=== PATIENT | female | born 1980 | race Caucasian/White ===

== ENCOUNTER 2020-06-20 15:28 | Outpatient (REF) | payer OTHER, SELFPAY ==
[2020-06-20 17:28] LABS: Hematocrit 39.3 % (37-47); Hemoglobin 12.7 g/dl (12.0-16.0); Mean Corpuscular HGB Conc 32.3 g/dl (31.0-35.0); Mean Corpuscular Hemoglobin 30.3 pg (27.0-33.0); Mean Corpuscular Volume 93.8 fL (80-98); Mean Platelet Volume 10.8 fL (9.4-12.3); Platelet Count 235 X10*3/uL (160-400); Red Blood Count 4.19 X10*6/uL (4.20-5.50); Red Cell Distribution Width 12.4 % (11.0-16.0); White Blood Count 7.2 X10*3/uL (4.8-10.8)
[2020-06-20 17:51] LABS: Anion Gap 12 (12-20); Blood Urea Nitrogen 18 mg/dL (9-16); Calcium 9.3 mg/dL (8.4-10.2); Carbon Dioxide 25 mmol/L (22-29); Chloride 107 mmol/L (96-108); Cholesterol 172 mg/dL; Estimated Glomerular Filt Rate > 60; Glucose Random 86 mg/dL (60-115); HDL Cholesterol 59 mg/dL; LDL Cholesterol Calculated 94 mg/dl; Potassium 4.3 mmol/L (3.3-5.1); Sodium 140 mmol/L (135-145); Triglycerides 95 mg/dL
[2020-06-20 18:12] LABS: Thyroid Stimulating Hormone 0.63 uIU/mL (0.32-4.0)
[2020-06-23 08:04] LABS: ~HepC Num1 0.07 S/CO (0.00-0.79); ~Hepatitis C Antibody Nonreactive (Nonreactive)
== END 2020-06-20 15:29 | disposition home or self-care (01) ==
LOC: HO.LAB 15:28
PROVIDERS: PCP Nurse Practitioner Family; Visit Provider Physician Assistant
DX: Z13.9 Encounter for screening, unspecified (principal); R53.83 Other fatigue
CPT/HCPCS: 36415; 80048; 80061; 84443; 85027; 86803

== ENCOUNTER 2020-09-24 14:19 | Outpatient (REF) | payer OTHER, SELFPAY ==
--- NOTE | ~2020-09-24 | US_ITS ---
EXAMINATION: US PELVIC AND TRANSVAGINAL CLINICAL INFORMATION: Excessive and frequent menstruation with irregular cycles. COMPARISON: None TECHNIQUE: Transabdominal and transvaginal imaging of the pelvis was performed. FINDINGS: The uterus is retroverted and retroflexed measuring 8.4 cm in length, 4.3 cm in AP and 5.2 cm in transverse dimensions. The uterus is homogeneous in echotexture. Endometrial thickness is 0.4 cm. On transvaginal ultrasound, there is a small, echogenic lesion in the fundal endometrial canal measuring 1.0 x 0.7 cm suspicious for a polyp. The right ovary measures 4.7 x 2.8 x 2.2 cm and volume 15.2 mL. There is an anechoic cyst measuring 2.2 x 1.7 x 1.8 cm. There are additional small anechoic cysts seen adjacent. The left ovary measures 4.1 x 2.2 x 1.6 cm and volume 7.7 mL. It appears unremarkable. There is a small amount of free fluid in the cul-de-sac. US/US pelvic and transvaginal IMPRESSION: Retroverted uterus with a small endometrial polyp in the fundus suspected. Suggest hysterosonogram or endoscopic evaluation. Multiple small right ovarian cysts with the largest simple cyst measuring 2.2 cm. There is a small amount of free fluid in the cul-de-sac.
== END 2020-09-24 14:20 | disposition home or self-care (01) ==
LOC: HO.US 14:19
PROVIDERS: PCP Physician Assistant; Visit Provider Physician Assistant
DX: N92.1 Excessive and frequent menstruation with irregular cycle (principal)
CPT/HCPCS: 76830; 76856

== ENCOUNTER 2020-10-21 13:16 | Outpatient (REF) | payer OTHER, SELFPAY ==
[2020-10-22 12:16] LABS: CT PCR NOT DETECTED (Not Detect.); NG PCR NOT DETECTED (Not Detect.)
[2020-10-24 19:16] LABS: HPV mRNA E6/E7 rflx Not Detected (Not Detected)
== END 2020-10-21 13:17 | disposition home or self-care (01) ==
LOC: HO.LAB 13:16
PROVIDERS: PCP Physician Assistant; Visit Provider Obstetrics & Gynecology
DX: Z01.419 Encounter for gynecological examination (general) (routine) without abnormal findings (principal); Z11.51 Encounter for screening for human papillomavirus (HPV); Z11.3 Encounter for screening for infections with a predominantly sexual mode of transmission; N93.9 Abnormal uterine and vaginal bleeding, unspecified; N84.0 Polyp of corpus uteri
CPT/HCPCS: 87491; 87591; 87624; 88142

== ENCOUNTER 2020-10-31 09:54 | Day surgery (SDC) | payer OTHER, SELFPAY ==
[2020-10-27 10:06] VITALS: BMI 22.3
--- NOTE | 2020-10-30 08:55 | HO.ANESPROP2 ---
Documented by User: Magalie Henson NP 10/30/20 08:56 HPI - Anesthesia Eval Consult details Narrative: 40yo F for D&C Hysteroscopy, Poss Polypectomy, Poss Myomectomy PMFSH Active Problems Active Problems: All Active Problems (Updated 10/27/20 @ 10:09 by Zelda Persaud, LISY) Abnormal uterine bleeding (AUB) (Acute) Endometrial polyp (Acute) Past Medical History Medical History (Updated 10/27/20 @ 10:09 by Zelda Persaud RN) Low back pain Seasonal allergies Well woman exam Surgical History Surgical History (Updated 10/27/20 @ 10:05 by Zelda Persaud RN) H/O repair of right rotator cuff History of repair of anterior cruciate ligament of right knee Social History Social History (Updated 10/27/20 @ 10:05 by Zelda Persaud RN) Patient Tobacco Use Status: Never used Tobacco Use of substances other than those prescribed or required for medical reasons: No Have you been hit, kicked, punched, or otherwise hurt by someone within the past year? If so, by whom?: No Are you DNR?: No Advance Directives: No Advance Directives Information Provided: No Advance Directives on File: No Patient : No FDLMP: 10/06/2020 Meds Allergies Allergy/AdvReac Type Severity Reaction Status Date / Time methylisothiazolinone Allergy Intermediate Hives Verified 10/27/20 10:06 Home Medications Medication Instructions Recorded Confirmed Last Taken Type levocetirizine 5 mg tablet (Xyzal) 5 mg PO BEDTIME 10/27/20 10/27/20 Unknown History Exam Exam Date and Time: October 30, 2020 0855 Height,Weight and Vital Signs: Height 5 ft 4 in Weight 58.967 kg Pertinent Lab Results Pertinent Lab Results: Laboratory Tests 06/20/20 06/20/20 15:48 15:48 WBC 7.2 Hgb 12.7 Hct 39.3 Plt Count 235 Sodium 140 Potassium 4.3 Chloride 107 Carbon Dioxide 25 BUN 18 H Creatinine 0.83 Assessment and Plan Assessment Anesthesia Assessment: Chart Reviewed Documented by User: Lis Whaley MD 10/31/20 11:13 [facility] Past Medical History Medical History (Updated 10/27/20 @ 10:09 by Zleda Persaud, LISY) Low back pain Seasonal allergies Well woman exam Family History Family history of problems with anesthesia: No Surgical History Surgical History (Updated 10/27/20 @ 10:05 by Zelda Persaud RN) H/O repair of right rotator cuff History of repair of anterior cruciate ligament of right knee History of Problems with Anesthesia: Yes (PONV) Social History Social History (Updated 10/27/20 @ 10:05 by Zelda Persaud RN) Patient Tobacco Use Status: Never used Tobacco Use of substances other than those prescribed or required for medical reasons: No Have you been hit, kicked, punched, or otherwise hurt by someone within the past year? If so, by whom?: No Are you DNR?: No Advance Directives: No Advance Directives Information Provided: No Advance Directives on File: No Patient : No FDLMP: 10/06/2020 Meds Allergies Allergy/AdvReac Type Severity Reaction Status Date / Time methylisothiazolinone Allergy Intermediate Hives Verified 10/27/20 10:06 Home Medications Medication Instructions Recorded Confirmed Last Taken Type levocetirizine 5 mg tablet (Xyzal) 5 mg PO BEDTIME 10/27/20 10/27/20 Unknown History Exam Height,Weight and Vital Signs: Height 5 ft 4 in Weight 58.967 kg Vital Signs Temp Pulse Resp BP Pulse Ox 10/31/20 10:31 97.8 F 110 H 18 146/89 H 100 Pertinent Lab Results Pertinent Lab Results: Laboratory Tests 06/20/20 06/20/20 15:48 15:48 WBC 7.2 Hgb 12.7 Hct 39.3 Plt Count 235 Sodium 140 Potassium 4.3 Chloride 107 Carbon Dioxide 25 BUN 18 H Creatinine 0.83 Lab Results 10/31/20 Range/Units 10:10 Urine Test NEGATIVE (NEGATIVE) Airway Mallampati Class: II TM Dist: >3cm Neck ROM: Full Loose/Missing/Broken Teeth: No (Top front bonded) Heart: RRR Lungs: CTAB Assessment and Plan Assessment Anesthesia Assessment: Anesthesia Plan Discussed Final Anesthetic Review Family History of Problems with Anesthesia: No History of Problems with Anesthesia: Yes (PONV) NPO: Yes ASA Class: II Final Preanesthetic Review: No Changes in Pt Med Stat, Meds/Allgs Chart Reviewed, Consent Obtained/Reviewed and Anes Risks/Benef Reviewed Patient Risk: Low Procedure Risk: Low Assessment/Block/Sedation in SS: Assess/Block/Sedation-SS Anesthetic Plan Anesthetic Plan: GA Disposition: Standard PACU
[2020-10-31 10:31] VITALS: BP 146/89; PULSE 110; RESP 18; TEMP 36.6; O2SAT 100
[2020-10-31 10:43] LABS: UPreg QC Valid YES; Urine Pregnancy NEGATIVE (NEGATIVE)
[2020-10-31 10:51] VITALS: BMI 22.3
[2020-10-31] MEDS: Lactated Ringers 1,000 ML 100 ML IVCONT (10:52)
[2020-10-31] MEDS: Scopolamine 1.5 MG PATCH.TD.3 TRANSDERMA (11:20)
--- NOTE | 2020-10-31 11:51 | MHC.SHP ---
Pre-Procedural Eval Section A Date of Service: 10/31/20 The patient is an INPATIENT: No Changes since office visit: No Cold of Flu in the past 2 weeks, No New Medical Problems, No Changes in Medication and No Patient answered all questions The History & Physical has been completed within 30 days and I have reviewed it.: Yes Section B Chief Complaint: polyp or corpus uteri Allergies: Allergies Allergy/AdvReac Type Severity Reaction Status Date / Time methylisothiazolinone Allergy Intermediate Hives Verified 10/27/20 10:06 Plan Diagnosis/Plan: Unchanged I have reviewed the history and physical and performed a pertinent physical examination on my patient. No changes have occurred unless specified.
--- NOTE | 2020-10-31 12:55 | P.BOP_ITS ---
Brief Operative Note Date of Service: 10/31/20 Pre-op diagnosis: AUB with endometrial polyp by ultrasound Post-op diagnosis: same Procedure: Hysteroscopy D&C, Polypectomy Surgeon: Idris Albright MD Anesthesia: MAC Was an Commercial Real Estate Broker used for this Procedure?: No Estimated blood loss (mL): 0 Pathology: other (Endometrial Scrapping. Polyp) Condition: stable Disposition: PACU
--- NOTE | 2020-10-31 12:55 | W.PM.OPN ---
Operative Note Operative Note Date of Service: 10/31/20 Narrative: Preop Diagnosis: AUB with Endometrial polyp by US Operation: Diagnostic Hysteroscopy, Dilataion & Curettage and polypectomy Post Op Diagnosis: Same with Endometrial Polyp QBL: Minimal Anesthesia: MAC Surgeon: Idris Albright MD Properties Supervisor: None Complication: None Pathology: Endometrial Scrapings, Endometrial polyp Complication: None Pathology: Endometrial Scrapings, Endometrial polyp Procedure: The patient was put in the dorsal lithotomy position, scrubbed, and draped in the usual manner. A sterile speculum was inserted in the patient's vagina. The anterior lip of the cervix was grasped with a single tooth tenaculum. The cervix was dilated up to 5 mm, then the scope was inserted in the patient's uterus. Inspection revealed endometrial polyp. The Myosure Reach device was used; it was introduced through the operative channel and polypectomy done with no complications. At the end of the procedure, all instruments were taken out of the patient uterine and vaginal cavity. The single tooth tenaculum was removed and homeostasis was assured using pressure,. The patient tolerated the procedure well and was transferred to the PACU in a stable condition.
[2020-10-31 13:02] VITALS: BP 100/59; PULSE 76; RESP 16; TEMP 36.4; O2SAT 100
[2020-10-31 13:17] VITALS: BP 110/66; PULSE 74; RESP 17; O2SAT 100
[2020-10-31 13:32] VITALS: BP 101/66; PULSE 67; RESP 17; TEMP 36.4; O2SAT 100
== END 2020-10-31 14:01 | disposition home or self-care (01) ==
PROVIDERS: Nurse Practitioner; PCP Physician Assistant; Visit Provider Obstetrics & Gynecology
PROC: 0UDB8ZZ Extraction of Endometrium, Via Natural or Artificial Opening Endoscopic (ICD-10-PCS; CPT 58558; principal; 2020-10-31 12:00)
DX: N93.9 Abnormal uterine and vaginal bleeding, unspecified (principal); N84.0 Polyp of corpus uteri
CPT/HCPCS: 58558; 81025; 88305; J1100; J1885; J2250; J2405; J3010

== ENCOUNTER → 2020-11-12 14:49 | Outpatient (BNVA) | payer OTHER, SELFPAY | PROVIDERS: PCP Physician Assistant; Visit Provider Obstetrics & Gynecology ==

== ENCOUNTER 2021-03-11 11:57 | Outpatient (REF) | payer OTHER, SELFPAY ==
--- NOTE | ~2021-03-11 | MM_ITS ---
EXAMINATION: MM SCREENING DIGITAL BREAST TOMOSYNTHESIS, BILATERAL CLINICAL INFORMATION: Screening. Asymptomatic. Age 41. No prior breast imaging. No known family history breast cancer. The lifetime risk of breast cancer based on the Tyrer-Cuzick Model is 12%. COMPARISON: None (current study represents initial baseline exam). TECHNIQUE: Digital breast tomosynthesis is performed in both the craniocaudal and mediolateral oblique views along with computer-aided detection (CAD). Synthesized 2D images are generated from the tomosynthesis. FINDINGS: The breasts are heterogeneously dense, which may obscure small masses (ACR BI-RADS breast composition Category c). Left breast has smooth oval mass mid upper outer quadrant approximately 2 x 3 cm, likely a cyst. Patient will be recalled for targeted ultrasound to confirm. Neither breast shows architectural abnormality or abnormal calcifications. The axilla and skin contours are unremarkable. MM/MM tomosynthesis screening BI IMPRESSION: 1. Left: Smooth oval mass upper outer quadrant approximately 2 x 3 cm, probable cyst. 2. Right: No mammographic evidence of malignancy. ASSESSMENT: BI-RADS 0: Incomplete - Need Additional Imaging Evaluation RECOMMENDATION: 1. Targeted ultrasound left breast. 2. Radiology department staff will contact the patient for additional imaging. This patient's information was entered into a reminder system with a target due date for their next mammogram.
== END 2021-03-11 11:58 | disposition home or self-care (01) ==
LOC: HO.MAMMO 11:57
PROVIDERS: Visit Provider Physician Assistant
DX: Z12.31 Encounter for screening mammogram for malignant neoplasm of breast (principal)
CPT/HCPCS: 77063; 77067

== ENCOUNTER 2021-03-18 09:04 | Outpatient (REF) | payer OTHER, SELFPAY ==
--- NOTE | ~2021-03-18 | US_ITS ---
EXAMINATION: US DIAGNOSTIC ULTRASOUND BREAST, LEFT CLINICAL INFORMATION: Recall from baseline screening for smooth oval mass mid upper outer left breast, likely cyst. COMPARISON: Baseline mammography 03/11/2021. TECHNIQUE: Ultrasound of the breast is performed with real-time madsen scale imaging and color Doppler. FINDINGS: There are benign simple cysts upper outer left breast in area recent mammographic finding with overall size 4.8 x 1.5 x 3.8 cm. There is no solid component. No associated peripheral or internal color flow. There is increased through-transmission of sound. No solid mass or architectural abnormality. Results are discussed with the patient at time of visit. US/US breast LT limited IMPRESSION: Benign cysts upper outer left breast with overall size 4.8 x 1.5 x 3.8 cm. ASSESSMENT: BI-RADS 2: Benign RECOMMENDATION: Routine annual mammography screening. This patient's information was entered into a reminder system with a target due date for their next mammogram.
== END 2021-03-18 09:05 | disposition home or self-care (01) ==
LOC: HO.MAMMO 09:04
PROVIDERS: PCP Physician Assistant; Visit Provider Obstetrics & Gynecology
DX: N63.21 Unspecified lump in the left breast, upper outer quadrant (principal)
CPT/HCPCS: 76642

== ENCOUNTER 2021-12-29 08:59 | Outpatient (REF) | payer OTHER, SELFPAY ==
[2021-12-29 10:12] LABS: Hematocrit 36.9 % (37.0-47.0); Mean Corpuscular HGB Conc 32.5 g/dl (31.0-35.0); Mean Corpuscular Hemoglobin 30.2 pg (27.0-33.0); Mean Corpuscular Volume 92.7 fL (80.0-98.0); Mean Platelet Volume 10.6 fL (9.4-12.3); Platelet Count 214 X10*3/uL (160-400); Red Blood Count 3.98 X10*6/uL (4.20-5.50); Red Cell Distribution Width 12.2 % (11.0-16.0); White Blood Count 5.4 X10*3/uL (4.8-10.8)
[2021-12-29 11:01] LABS: HCG Quantitative < 2 mIU/mL; TSH reflex Free T4 0.98 uIU/mL (0.32-4.0)
[2021-12-29 18:28] LABS: CT PCR NOT DETECTED (Not Detect.); NG PCR NOT DETECTED (Not Detect.)
== END 2021-12-29 09:00 | disposition home or self-care (01) ==
LOC: HO.LAB 08:59
PROVIDERS: PCP Physician Assistant; Visit Provider Obstetrics & Gynecology
DX: N93.9 Abnormal uterine and vaginal bleeding, unspecified (principal)
CPT/HCPCS: 84443; 84702; 85027; 87491; 87591

== ENCOUNTER 2022-02-08 11:09 | Outpatient (REF) | payer OTHER, SELFPAY ==
--- NOTE | ~2022-02-08 | US_ITS ---
EXAMINATION: US PELVIS CLINICAL INFORMATION: Abnormal uterine vaginal bleeding; the last menstrual period was 3 weeks prior. COMPARISON: None TECHNIQUE: Ultrasound of the pelvis is performed using both transabdominal and transvaginal transducers along with Doppler. Transvaginal imaging is performed due to inadequate visualization transabdominally. FINDINGS: Uterus: The uterus is anteverted and anteflexed. The uterus measures 7.9 x 4.6 x 5.6 cm. The double wall endometrial thickness is 1.4 mm. Within the endometrial canal, a 1.2 x 0.9 x 0.8 cm polyp is noted. On the prior ultrasound examination, this measured 1.0 x 0.7 cm. The uterus is smooth in contour and has normal myometrial echogenicity. No visible fibroid. Adnexa: Both ovaries are visualized. There is normal color flow to the adnexa. There is no ovarian torsion. There is a small amount of free fluid in the cul-de-sac. Right ovary measures 3.2 x 2.7 x 3.3 cm, volume 14.9 mL. Within the right ovary, a 1.8 x 1.4 x 1.6 cm cyst is seen, with internal reticulated contents and no associated color Doppler flow. This is characteristic for a degenerating hemorrhagic cyst. Left ovary measures 3.7 x 1.5 x 1.1 cm, volume 14.8 mL. There are multiple simple physiologic follicles. US/US pelvic and transvaginal IMPRESSION: 1. An endometrial polyp is redemonstrated, with differential considerations including focal endometrial hyperplasia, hyperplastic polyp, a subendometrial fibroid and further neoplasm. Gynecology evaluation and management is recommended, with consideration for tissue sampling, if clinically appropriate. 2. A 1.8 cm degenerating corpus luteum cyst is seen within the right ovary. 3. There is a small amount of nonspecific free fluid within the cul-de-sac.
== END 2022-02-08 11:10 | disposition home or self-care (01) ==
LOC: HO.US 11:09
PROVIDERS: Visit Provider Obstetrics & Gynecology
DX: N93.9 Abnormal uterine and vaginal bleeding, unspecified (principal)
CPT/HCPCS: 76830; 76856

== ENCOUNTER 2022-03-04 08:39 | Outpatient (REF) | payer OTHER, SELFPAY | END 2022-03-04 08:40 | disposition home or self-care (01) | LOC: HO.LNP 08:39 | PROVIDERS: PCP Physician Assistant; Visit Provider Obstetrics & Gynecology | DX: N93.9 Abnormal uterine and vaginal bleeding, unspecified (principal); R93.5 Abnormal findings on diagnostic imaging of other abdominal regions, including retroperitoneum; N83.10 Corpus luteum cyst of ovary, unspecified side; K62.5 Hemorrhage of anus and rectum; Z32.02 Encounter for pregnancy test, result negative | CPT/HCPCS: 58100; 81025; 88305 ==

== ENCOUNTER 2022-03-17 12:12 | Outpatient (REF) | payer OTHER, SELFPAY ==
--- NOTE | ~2022-03-17 | MM_ITS ---
EXAMINATION: MM SCREENING DIGITAL BREAST TOMOSYNTHESIS, BILATERAL CLINICAL INFORMATION: Screening. Asymptomatic. The lifetime risk of breast cancer based on the Tyrer-Cuzick Model is 17.3%. COMPARISON: Mammography: 03/11/2021 and ultrasound of 03/18/2021. TECHNIQUE: Digital breast tomosynthesis is performed in both the craniocaudal and mediolateral oblique views along with computer-aided detection (CAD). Synthesized 2D images are generated from the tomosynthesis. FINDINGS: The breasts are extremely dense, which lowers the sensitivity of mammography (ACR BI-RADS breast composition Category d). There is multiplicity and bilaterality of scattered calcifications. There are again noted to be bilateral circumscribed densities in patient with previous left breast ultrasound demonstrating multiple simple cysts within the left breast. There has been an increase in size in some of the circumscribed cysts bilaterally. MM/MM tomosynthesis screening BI IMPRESSION: Some increase in size of circumscribed lesions within the breasts, with previous ultrasound demonstrating multiple simple cysts. ASSESSMENT: BI-RADS 2: Benign RECOMMENDATION: Routine annual mammography screening. This patient's information was entered into a reminder system with a target due date for their next mammogram.
== END 2022-03-17 12:13 | disposition home or self-care (01) ==
LOC: HO.MAMMO 12:12
PROVIDERS: Visit Provider Physician Assistant
DX: Z12.31 Encounter for screening mammogram for malignant neoplasm of breast (principal)
CPT/HCPCS: 77063; 77067

== ENCOUNTER → 2022-03-25 08:35 | Outpatient (BNVA) | payer OTHER, SELFPAY | PROVIDERS: PCP Physician Assistant; Visit Provider Obstetrics & Gynecology | DX: Z13.89 Encounter for screening for other disorder (principal) ==

== ENCOUNTER 2022-05-10 10:20 | Outpatient (REF) | payer OTHER, SELFPAY ==
[2022-05-10 11:38] LABS: MANUAL DIFF FLAG NO
[2022-05-10 11:56] LABS: Basophils Percent Auto 0.6 % (0-2); Eosinophils Percent Auto 0.3 % (0-4); Hematocrit 40.6 % (37.0-47.0); Hemoglobin 13.6 g/dl (12.0-16.0); Imm Gran Abs Auto 0.02 X10*3/uL (0.00-0.03); Imm Gran Pct Auto 0.3 % (0.0-0.4); Lymphocytes Absolute Auto 1.7 X10*3/uL (1.2-4.9); Lymphocytes Percent Auto 26.9 % (20-40); Mean Corpuscular HGB Conc 33.5 g/dl (31.0-35.0); Mean Corpuscular Hemoglobin 30.9 pg (27.0-33.0); Mean Corpuscular Volume 92.3 fL (80.0-98.0); Mean Platelet Volume 10.5 fL (9.4-12.3); Monocytes Absolute Auto 0.4 X10*3/uL (0.1-1.2); Monocytes Percent Auto 6.5 % (2-11); Neutrophils Absolute Auto 4.1 x10*3/uL (2.0-8.3); Neutrophils Percent Auto 65.4 % (45-73); Platelet Count 214 X10*3/uL (160-400); Red Cell Distribution Width 12.3 % (11.0-16.0); White Blood Count 6.2 X10*3/uL (4.8-10.8)
[2022-05-10 12:36] LABS: Erythrocyte Sedimentation Rate 2 MM/HR (0-20)
[2022-05-10 13:28] LABS: C Reactive Protein < 0.04 mg/dL (< or = 0.50)
== END 2022-05-10 10:21 | disposition home or self-care (01) ==
LOC: HO.LAB 10:20
PROVIDERS: PCP Physician Assistant; Visit Provider Physician Assistant
DX: K62.5 Hemorrhage of anus and rectum (principal)
CPT/HCPCS: 36415; 85025; 85652; 86140

== ENCOUNTER 2022-06-02 11:00 | Outpatient (REF) | payer OTHER, SELFPAY ==
--- NOTE | ~2022-06-02 | US_ITS ---
EXAMINATION: US PELVIS CLINICAL INFORMATION: Corpus luteum cyst of ovary; the last menstrual period was 5 days prior. COMPARISON: Pelvic ultrasound dated 02/08/2022. TECHNIQUE: Ultrasound of the pelvis is performed using both transabdominal and transvaginal transducers along with Doppler. Transvaginal imaging is performed due to inadequate visualization transabdominally. FINDINGS: Uterus: The uterus is anteverted and measures 8.4 x 3.8 x 5.4 cm. The uterus is retroverted and retroflexed. The double wall endometrial thickness is 1.2 mm. Within the endometrial canal, a 1.2 x 0.6 x 0.9 cm polyp is redemonstrated. The uterus is smooth in contour and has normal myometrial echogenicity. No visible fibroid. Adnexa: Both ovaries are visualized. There is normal color flow to the adnexa. There is no ovarian torsion. There is a small amount of free fluid in the cul-de-sac. Right ovary measures 3.8 x 1.9 x 2.2 cm, volume 8.3 mL. The right ovary contains a 1.3 x 1.1 x 1.1 cm benign, simple cyst. The previously noted degenerating corpus luteum cyst has resolved in the interim. Left ovary measures 3.4 x 1.6 x 1.8 cm, volume 5.1 mL. Small physiologic follicles are noted within the left ovary. US/US pelvic and transvaginal IMPRESSION: 1. There is a continued stable appearance of an endometrial polyp. Again, Gynecology evaluation management are recommended. 2. Small simple cysts and follicles are incidentally noted within the bilateral ovaries, which require no imaging follow-up. 2. There is a small amount of nonspecific free fluid in the cul-de-sac.
== END 2022-06-02 11:01 | disposition home or self-care (01) ==
LOC: HO.US 11:00
PROVIDERS: PCP Physician Assistant; Visit Provider Obstetrics & Gynecology
DX: N83.10 Corpus luteum cyst of ovary, unspecified side (principal)
CPT/HCPCS: 76830; 76856

== ENCOUNTER → 2022-06-29 12:30 | Outpatient (BNVA) | payer OTHER, SELFPAY | PROVIDERS: PCP Physician Assistant; Visit Provider Obstetrics & Gynecology | DX: Z13.89 Encounter for screening for other disorder (principal) ==

== ENCOUNTER 2022-07-16 08:57 | Day surgery (SDC) | payer OTHER, SELFPAY ==
[2022-07-14 15:57] VITALS: BMI 22.5
--- NOTE | 2022-07-15 09:18 | HO.ANESPROP2 ---
Documented by User: Magalie Henson NP 07/15/22 09:18 HPI - Anesthesia Eval Consult details Narrative: 42yo F for D&C Hysteroscopy,poss myomectomy,poss polypectomy,IUD insertion, PMFSH Active Problems Active Problems: All Active Problems (Updated 06/29/22 @ 13:04 by Idris Albright MD) Abnormal uterine bleeding (AUB) (Acute) Endometrial polyp (Acute) Well woman exam (Acute) Corpus luteum cyst (Acute) Abnormal ultrasound of endometrium (Acute) Rectal bleeding (Acute) Past Medical History Medical History (Updated 07/16/22 @ 09:22 by Merly Shields, RN) IBS (irritable bowel syndrome) In vitro fertilization Low back pain Seasonal allergies Well woman exam Family History Family History Maternal Aunt Colitis IBS (irritable bowel syndrome) Family history of problems with anesthesia: No Surgical History Surgical History (Updated 07/14/22 @ 15:56 by Zelda Persaud RN) H/O repair of right rotator cuff History of hysteroscopy History of repair of anterior cruciate ligament of right knee History of Problems with Anesthesia: Yes (PONV) Social History Social History Household Members: Spouse Alcohol intake: current Patient Tobacco Use Status: Never used Tobacco Current occupational status: employed Meds Allergies Allergy/AdvReac Type Severity Reaction Status Date / Time methylisothiazolinone Allergy Intermediate Hives Verified 07/16/22 09:23 Home Medications Medication Instructions Recorded Confirmed Last Taken Type levocetirizine 5 mg tablet (Xyzal) 5 mg PO BEDTIME 10/27/20 07/16/22 Unknown History Exam Exam Date and Time: July 15, 202218 Height,Weight and Vital Signs: Height 5 ft 5 in Weight 61.235 kg Pertinent Lab Results Pertinent Lab Results: Laboratory Tests 05/10/22 11:37 WBC 6.2 Hgb 13.6 Hct 40.6 Plt Count 214 Assessment and Plan Assessment Anesthesia Assessment: Chart Reviewed Final Anesthetic Review Family History of Problems with Anesthesia: No History of Problems with Anesthesia: Yes (PONV) Documented by User: Barrie Wynn MD 07/16/22 09:58 PMFSH Past Medical History Medical History (Updated 07/16/22 @ 09:22 by Merly Shields, RN) IBS (irritable bowel syndrome) In vitro fertilization Low back pain Seasonal allergies Well woman exam Patient : No Family History Family History Maternal Aunt Colitis IBS (irritable bowel syndrome) Surgical History Surgical History (Updated 07/14/22 @ 15:56 by Zelda Persaud, LISY) H/O repair of right rotator cuff History of hysteroscopy History of repair of anterior cruciate ligament of right knee Social History Social History Household Members: Spouse Alcohol intake: current Patient Tobacco Use Status: Never used Tobacco Current occupational status: employed Meds Allergies Allergy/AdvReac Type Severity Reaction Status Date / Time methylisothiazolinone Allergy Intermediate Hives Verified 07/16/22 09:23 Home Medications Medication Instructions Recorded Confirmed Last Taken Type levocetirizine 5 mg tablet (Xyzal) 5 mg PO BEDTIME 10/27/20 07/16/22 Unknown History Exam Airway Mallampati Class: I TM Dist: >3cm Neck ROM: Full Heart: ok Lungs: ok Assessment and Plan Assessment Anesthesia Assessment: Anesthesia Plan Discussed Final Anesthetic Review NPO: Yes ASA Class: II Final Preanesthetic Review: No Changes in Pt Med Stat, Meds/Allgs Chart Reviewed, Consent Obtained/Reviewed and Anes Risks/Benef Reviewed Patient Risk: Low Procedure Risk: Low Anesthetic Plan Anesthetic Plan: GA and Agree w/ Assess. and Plan Disposition: Standard PACU
[2022-07-16 09:28] LABS: UPreg QC Valid YES; Urine Pregnancy NEGATIVE (NEGATIVE)
[2022-07-16 09:31] VITALS: BP 108/74; PULSE 84; RESP 15; TEMP 36.9; O2SAT 98
[2022-07-16] MEDS: Lactated Ringers 1,000 ML 100 ML IVCONT (09:37)
[2022-07-16] MEDS: Scopolamine 1.5 MG PATCH.TD.3 EAR-BEHIND (10:06)
--- NOTE | 2022-07-16 10:26 | MHC.SHP ---
Pre-Procedural Eval Section A Date of Service: 07/16/22 The patient is an INPATIENT: No Changes since office visit: No Cold of Flu in the past 2 weeks, No New Medical Problems, No Changes in Medication and No Patient answered all questions The History & Physical has been completed within 30 days and I have reviewed it.: Yes Section B Chief Complaint: Abnormal findings on diagnostic imaging of other Allergies: Allergies Allergy/AdvReac Type Severity Reaction Status Date / Time methylisothiazolinone Allergy Intermediate Hives Verified 07/16/22 09:23 Plan Diagnosis/Plan: Unchanged I have reviewed the history and physical and performed a pertinent physical examination on my patient. No changes have occurred unless specified. Time Spent With Patient Time: Total time managing care of this patient today ____ minutes.
--- NOTE | 2022-07-16 11:22 | PM.OP ---
Brief Operative Note Date of Service: 07/16/22 Pre-op diagnosis: Abnormal uterine bleeding, endometrial polyp, requesting Mirena IUD insertion Post-op diagnosis: same (For endometrial polyp) Procedure: Hysteroscopy D&C, Polypectomies x4, Mirena IUD insertion Surgeon: Idris Albright MD Anesthesia: GLMA Was an Unhairing Inspector used for this Procedure?: No Estimated blood loss (mL): 0 Pathology: other (Endometrial Scrapping. Polyps) Condition: stable Disposition: PACU
--- NOTE | 2022-07-16 11:22 | W.PM.OPN ---
Operative Note Operative Note Date of Service: 07/16/22 Narrative: Preop Diagnosis: Abnormal uterine bleeding, Endometrial polyp by US, requesting Mirena IUD insertion Operation: Diagnostic Hysteroscopy, Dilataion & Curettage and polypectomies x 4, Mirena IUD insertion Post Op Diagnosis: 4 Endometrial Polyps QBL: Minimal Anesthesia: GLMA Surgeon: Idris Albright MD Supervisor Finish End: None Complication: None Pathology: Endometrial Scrapings, Endometrial polyps Procedure: The patient was put in the dorsal lithotomy position, scrubbed, and draped in the usual manner. A sterile speculum was inserted in the patient's vagina. The anterior lip of the cervix was grasped with a single tooth tenaculum. The cervix was dilated up to 5 mm, then the scope was inserted in the patient's uterus. Inspection revealed 4 endometrial polyps. The Myosure Reach device was used; it was introduced through the operative channel and polypectomies x4 done with no complications. The scope was then taken out from the uterine cavity, sharp curettings was carried on with minimal to moderate amount of tissues retrieved. A sound was advanced through the external and internal os until it reached the fundus of the uterus, the depth was 8 cm. The sound was then withdrawn. The IUD was loaded in a sterile manner and advanced into position. The string was visualized and cut to 3 cm. Tenaculum site hemostatic. At the end of the procedure, all instruments were taken out of the patient uterine and vaginal cavity. The single tooth tenaculum was removed and homeostasis was assured using pressure,. The patient tolerated the procedure well and was transferred to the PACU in a stable condition.
[2022-07-16 11:25] VITALS: BP 113/71; PULSE 98; RESP 20; TEMP 36.6; O2SAT 100
[2022-07-16 11:30] VITALS: BP 109/69; PULSE 69; RESP 18; O2SAT 100
[2022-07-16 11:35] VITALS: BP 106/69; PULSE 72; RESP 18; O2SAT 100
[2022-07-16 11:40] VITALS: BP 105/67; PULSE 68; RESP 16; O2SAT 100
[2022-07-16] MEDS: Acetaminophen 325 MG TABLET 650 MG PO (11:46)
[2022-07-16 12:06] VITALS: BP 106/70; PULSE 82; RESP 18; TEMP 37.2; O2SAT 100
== END 2022-07-16 12:25 | disposition home or self-care (01) ==
PROVIDERS: Nurse Practitioner; PCP Physician Assistant; Visit Provider Obstetrics & Gynecology
PROC: 0UDB8ZZ Extraction of Endometrium, Via Natural or Artificial Opening Endoscopic (ICD-10-PCS; CPT 58558; principal; 2022-07-16 11:10)
DX: N93.9 Abnormal uterine and vaginal bleeding, unspecified (principal); N84.0 Polyp of corpus uteri; N83.10 Corpus luteum cyst of ovary, unspecified side; Z30.430 Encounter for insertion of intrauterine contraceptive device; J30.2 Other seasonal allergic rhinitis; Z88.8 Allergy status to other drugs, medicaments and biological substances; Z79.899 Other long term (current) drug therapy; M54.50 Low back pain, unspecified; Z98.890 Other specified postprocedural states
CPT/HCPCS: 58558; 58300; 81025; 88305; J1100; J1885; J2250; J2405

== ENCOUNTER → 2022-08-04 11:16 | Outpatient (BNVA) | payer OTHER, SELFPAY | PROVIDERS: PCP Physician Assistant; Visit Provider Obstetrics & Gynecology ==

== ENCOUNTER 2022-09-27 10:34 | Day surgery (SDC) | payer OTHER, SELFPAY ==
[2022-09-23 15:43] VITALS: BMI 22.5
--- NOTE | 2022-09-24 10:45 | P.CONAN_ITS ---
Documented by User: Magalie Henson NP 09/24/22 10:48 HPI - Anesthesia Eval Consult details Narrative: 42yo F for Colonoscopy PMFSH Active Problems Active Problems: All Active Problems (Updated 08/04/22 @ 11:48 by Idris Albright MD) Abnormal uterine bleeding (AUB) (Acute) Endometrial polyp (Acute) Well woman exam (Acute) Corpus luteum cyst (Acute) Abnormal ultrasound of endometrium (Acute) Rectal bleeding (Acute) Past Medical History Medical History IBS (irritable bowel syndrome) In vitro fertilization Low back pain Seasonal allergies Well woman exam Family History Family History Maternal Aunt Colitis IBS (irritable bowel syndrome) Family history of problems with anesthesia: No Surgical History Surgical History H/O repair of right rotator cuff History of hysteroscopy History of repair of anterior cruciate ligament of right knee History of Problems with Anesthesia: Yes (PONV) Social History Social History Household Members: Spouse Alcohol intake: current Patient Tobacco Use Status: Never used Tobacco Are you DNR?: No Advance Directives: No Advance Directives Information Provided: Yes Nutrition Risks: No Nutritional Risk FDLMP: started today Current occupational status: employed Meds Allergies Allergy/AdvReac Type Severity Reaction Status Date / Time methylisothiazolinone Allergy Intermediate Hives Verified 09/27/22 10:47 Home Medications Medication Instructions Recorded Confirmed Last Taken Type levocetirizine 5 mg tablet (Xyzal) 5 mg PO BEDTIME 10/27/20 09/27/22 Unknown History levonorgestrel 21 mcg/24 hours (8 intrauterine 08/04/22 Unknown History yrs) 52 mg intrauterine device (Mirena) Exam Exam Date and Time: September 24, 2022 1045 Height,Weight and Vital Signs: Height 5 ft 5 in Weight 61.235 kg Assessment and Plan Assessment Anesthesia Assessment: Chart Reviewed Final Anesthetic Review Family History of Problems with Anesthesia: No History of Problems with Anesthesia: Yes (PONV) Documented by User: Shelly Moise MD 09/27/22 11:33 [facility] Past Medical History Medical History IBS (irritable bowel syndrome) In vitro fertilization Low back pain Seasonal allergies Well woman exam Family History Family History Maternal Aunt Colitis IBS (irritable bowel syndrome) Surgical History Surgical History H/O repair of right rotator cuff History of hysteroscopy History of repair of anterior cruciate ligament of right knee History of Problems with Anesthesia: Yes Social History Social History Household Members: Spouse Alcohol intake: current Patient Tobacco Use Status: Never used Tobacco Are you DNR?: No Advance Directives: No Advance Directives Information Provided: Yes Nutrition Risks: No Nutritional Risk FDLMP: started today Current occupational status: employed Meds Allergies Allergy/AdvReac Type Severity Reaction Status Date / Time methylisothiazolinone Allergy Intermediate Hives Verified 09/27/22 10:47 Home Medications Medication Instructions Recorded Confirmed Last Taken Type levocetirizine 5 mg tablet (Xyzal) 5 mg PO BEDTIME 10/27/20 09/27/22 Unknown History levonorgestrel 21 mcg/24 hours (8 intrauterine 08/04/22 Unknown History yrs) 52 mg intrauterine device (Mirena) Exam Airway Mallampati Class: II (bonded tooth bottom center) TM Dist: >3cm Neck ROM: Full Heart: rrr Lungs: cta Assessment and Plan Assessment Anesthesia Assessment: Anesthesia Plan Discussed Final Anesthetic Review History of Problems with Anesthesia: Yes NPO: No ASA Class: II Final Preanesthetic Review: No Changes in Pt Med Stat, Meds/Allgs Chart Reviewed and Consent Obtained/Reviewed Patient Risk: Intermediate Procedure Risk: Intermediate Anesthetic Plan Anesthetic Plan: MAC: Disposition: Standard PACU
[2022-09-27 10:52] LABS: UPreg QC Valid YES; Urine Pregnancy NEGATIVE (NEGATIVE)
[2022-09-27 10:59] VITALS: BP 114/79; PULSE 82; RESP 18; TEMP 36.7; O2SAT 100
[2022-09-27] MEDS: Lactated Ringers 1,000 ML 100 ML IVCONT (10:59)
--- NOTE | 2022-09-27 11:31 | MHC.SHP ---
Pre-Procedural Eval Section A Date of Service: 09/27/22 The patient is an INPATIENT: No The History & Physical has been completed within 30 days and I have reviewed it.: No Section B Chief Complaint: IBS, rectal bleeding Relevant Family History (Specify if Yes): Yes Relevant Social History: None Present Medications: see Short Stay Collaborative assessment Medical History: Significant History (Low back pain Seasonal allergies) History of Previous Operations: Relevant previous surgery/procedure and date(s) (H/O repair of right rotator cuff History of repair of anterior cruciate ligament of right knee) Allergies: Allergies Allergy/AdvReac Type Severity Reaction Status Date / Time methylisothiazolinone Allergy Intermediate Hives Verified 09/27/22 10:47 Review of Systems Sugical H&P ROS: Negative: Constitution, Cardiovascular, Respiratory and Gastrointestinal Exam Surgical H&P Exam: Normal: Heart, Normal: Lungs, Normal: Extremities and Normal: Abdomen Plan Diagnosis/Plan: Unchanged I have reviewed the history and physical and performed a pertinent physical examination on my patient. No changes have occurred unless specified. Time Spent With Patient Time: Total time managing care of this patient today ____ minutes.
--- NOTE | 2022-09-27 11:35 | W.PM.OPN ---
Operative Note Operative Note Date of Service: 09/27/22 Narrative: COLONOSCOPY TILL CECUM WITH BIOPSIES, SNARE POLYPECTOMY SUBMUCOSAL INJECTION AND HEMOCLIP PLACEMENT Pre-op diagnosis: IBS, rectal bleeding Post-op diagnosis:? Colon polyps, diverticulosis, hemorrhoids Endoscopist:? Mikel Lazaro MD Anesthesia:?MAC Consent: Indications for the procedure and potential complications of bleeding, perforation, reaction to medications and missed diagnosis were discussed with the patient and informed consent was obtained. Instrument: Olympus PCF H 190 L variable stiffness pediatric colonoscope Monitoring: Vital signs and clinical assessment, intermittent blood pressure monitoring, continuous EKG monitoring, Pulse oximetry and Carbon Dioxide monitoring were done throughout the procedure. Please see anesthesia flowsheet. Colon withdrawl time was 34 minutes. Procedure: The patient was placed in the left lateral decubitis position and pre-procedure medications were administered. After a digital rectal examination of the ano-rectum, the video colonoscope was inserted into the rectum and advanced through the colon to the cecum. The colonoscope was slowly withdrawn in a retrograde panoramic fashion and the colon mucosa was carefully examined including a retroflexed view of the rectum. Findings and interventions are described below. Procedure Difficulty: Colon was long and there was some loop formation. Findings: Terminal Ileum: Not evaluated Cecum: A 12 - 15 mm flat polyp -raised with 2 cc of normal saline and removed with a hot snare. Some bleeding noted at the polypectomy site controlled with cautery using the snare tip. Polypectomy site was closed with 1 hemoclip Ascending Colon: A 15 to 18 mm sessile polyp in the distal AC/hepatic flexure - removed with a hot snare. Transverse Colon: Normal Descending Colon: Normal Sigmoid Colon: A 12 -15 mm sessile polyp - removed with a hot snare. Moderate diverticulosis Rectum: A 12 -15 mm sessile polyp - removed with a hot snare. A 3.5 to 4 cms hemorrhagic appearing polyp on a short pedicle - removed piecemeal with a hot snare. Polypectomy site was closed with 2 hemoclips and marked by Nataliia ink Ano-rectum: Moderate internal hemorrhoids Colon preparation: Excellent Impression and Post Procedure Diagnosis: Colonoscopy Findings: Four medium sized and one large polyps removed Random biopsies were obtained from the right and left colon to check for microscopic colitis Moderate diverticulosis seen in the sigmoid colon Moderate hemorrhoids on retroflexed exam. Rectal bleeding likely from large rectal polyp Plan: Await pathology results Patient has an appointment on 10/11/22 in the GI Clinic with SILVIO Silverio. Repeat Colonoscopy interval based on path results - in 1 year if polyps are adenomatous and to check polypectomy site in the rectum and 10 years if polyps are hyperplastic. Above findings were reviewed with the patient and colon polyps and diverticulosis handouts were given in the discharge area
[2022-09-27 12:30] VITALS: BP 98/57; PULSE 78; RESP 18; TEMP 36.1; O2SAT 100
[2022-09-27 12:45] VITALS: BP 108/70; PULSE 64; RESP 18; TEMP 37.2; O2SAT 100
== END 2022-09-27 13:22 | disposition home or self-care (01) ==
PROVIDERS: Nurse Practitioner; PCP Physician Assistant; Visit Provider Internal Medicine Gastroenterology
PROC: 0DJD8ZZ Inspection of Lower Intestinal Tract, Via Natural or Artificial Opening Endoscopic (ICD-10-PCS; CPT 45378; principal; 2022-09-27 12:10)
DX: D12.0 Benign neoplasm of cecum (principal); D12.2 Benign neoplasm of ascending colon; D12.5 Benign neoplasm of sigmoid colon; D12.8 Benign neoplasm of rectum; K62.82 Dysplasia of anus; K57.30 Diverticulosis of large intestine without perforation or abscess without bleeding; K64.8 Other hemorrhoids; K62.5 Hemorrhage of anus and rectum; K58.9 Irritable bowel syndrome, unspecified; Z79.899 Other long term (current) drug therapy
CPT/HCPCS: 45385; 45380; 81025; 88305; J2250

== ENCOUNTER → 2022-09-27 10:34 | Outpatient (BNV) | payer OTHER, SELFPAY | PROVIDERS: PCP Physician Assistant; Visit Provider Internal Medicine Gastroenterology | DX: K58.9 Irritable bowel syndrome, unspecified (principal); K62.5 Hemorrhage of anus and rectum; K57.30 Diverticulosis of large intestine without perforation or abscess without bleeding; K64.8 Other hemorrhoids; D12.0 Benign neoplasm of cecum; D12.2 Benign neoplasm of ascending colon; D12.5 Benign neoplasm of sigmoid colon; D12.8 Benign neoplasm of rectum | CPT/HCPCS: 45381; 45385 ==

== ENCOUNTER 2022-10-19 09:39 | Outpatient (AMB) | payer OTHER, SELFPAY ==
--- NOTE | 2022-10-19 09:36 | MHC.OFFVIS ---
Intake Intake Visit Reasons: S/P [place]; Dr. Lazaro Intake Note: Patient follow up for Colonoscopy results. Patient denies any GI issues. Rn Psych Required: No Accompanied by: Self / Same As Patient Allergies methylisothiazolinone Allergy (Intermediate, Verified 10/19/22 09:41) Hives HPI HPI Comments History of Present Illness Details A very pleasant 42-year-old female follows up after recent colonoscopy for rectal bleed She tolerated procedure well She has no GI complaints today Reviewed procedure report and pathology She was is concerned as to her pathology, certainly understandable No nausea, vomiting, hematemesis, hematochezia fever chills PFSH Medical History IBS (irritable bowel syndrome) In vitro fertilization Low back pain Seasonal allergies Well woman exam Surgical History H/O repair of right rotator cuff History of hysteroscopy History of repair of anterior cruciate ligament of right knee Hx of colonoscopy Family History Maternal Aunt Colitis IBS (irritable bowel syndrome) Social History Household Members: Spouse Alcohol intake: current Patient Tobacco Use Status: Never used Tobacco Current occupational status: employed Female Reproductive History Menstrual Age of Menarche: 10 Review of Systems Const All systems reviewed & are unremarkable except as noted in HPI and below Card Denies chest pain and Denies dyspnea Resp Denies dyspnea GI Denies abdominal pain Physical Exam Const General: cooperative, healthy appearing, comfortable and no acute distress Orientation/consciousness: patient oriented x3 Limitations: no limitations Eyes Sclerae: sclerae normal Neuro General: patient oriented x3 Psych Appearance: grossly normal and well kempt Mental Status: mental status grossly normal Speech and movement: Normal speech and movement present and Clear speech present Affect: normal affect Attitude: cooperative Thought process: Normal thought process present Thought content: Normal thought content present Insight: Good insight present (Psych) Judgement: Good judgement present (Psych) Results Reviewed Results Reviewed: Findings: Terminal Ileum: Not evaluated Cecum:? A 12 - 15 mm flat polyp -raised with 2 cc of normal saline and removed with a hot snare. Some bleeding noted at the polypectomy site controlled with cautery using the snare tip.? Polypectomy site was closed with 1 hemoclip Ascending Colon:? A 15 to 18 mm sessile polyp in the distal AC/hepatic flexure - removed with a hot snare. Transverse Colon:? Normal Descending Colon:? Normal Sigmoid Colon:? A 12 -15 mm sessile polyp - removed with a hot snare. Moderate diverticulosis Rectum: ? A 12 -15 mm sessile polyp - removed with a hot snare. A 3.5 to 4 cms hemorrhagic appearing polyp on a short pedicle - removed piecemeal with a hot snare. Polypectomy site was closed with 2 hemoclips and marked by Nataliia ink Ano-rectum:? Moderate internal hemorrhoids Colon preparation: Excellent ? Impression and Post Procedure Diagnosis: Colonoscopy Findings: Four medium sized and one large polyps removed Random biopsies were obtained from the right and left colon to check for microscopic colitis Moderate diverticulosis seen in the sigmoid colon Moderate hemorrhoids on retroflexed exam. Rectal bleeding likely from large rectal polyp Plan: Await pathology results Patient has an appointment on 10/11/22 in the GI Clinic with SILVIO Silverio. Repeat Colonoscopy interval based on path results - in 1 year if polyps are adenomatous and to check polypectomy site in the rectum and 10 years if polyps are hyperplastic. Above findings were reviewed with the patient and colon polyps and diverticulosis handouts were given in the discharge area Name:Romina Turner Senait Age/Sex: 42/F Attending: Mikel Lazaro MD : 1980 Submitted by: Mikel Lazaro MD Copies to: SAMUEL ESPINOZA MR #: [id number] ? Status: [facility] Collected: 09/27/22 Location: [facility] Received: 09/27/22 Diagnosis A.? Colon, ascending, polypectomy:? Sessile serrated lesion/polyp; negative for cytologic dysplasia. B.? Cecum, polypectomy:? Sessile serrated lesion/polyp; negative for cytologic dysplasia. C.? Colon, right, biopsy:? Colonic mucosa within normal limits; negative for microscopic colitis. D.? Colon, left, biopsy:? Colonic mucosa within normal limits; negative for microscopic colitis. E.? Colon, sigmoid, polypectomy:? Tubular adenoma; negative for high-grade dysplasia or carcinoma. F.? Rectum, polypectomy:? Fragments of tubular adenoma; negative for high-grade dysplasia or carcinoma. G.? Rectum, 10 cm, polypectomy:? Fragments of tubular adenoma with focal high grade dysplasia; negative for carcinoma. Clinical History Pre-Op Dx:? Rectal bleeding Post-Op Dx: Colon polyps, diverticulosis, hemorrhoids You should undergo a flexible sigmoidoscopy in 3-4 months to check the area of the large rectal polyp. Assessment & Plan Assessment & Plan (1) Sessile serrated polyp of colon: Code(s): D12.6 - Benign neoplasm of colon, unspecified (2) Tubular adenoma: Code(s): D36.9 - Benign neoplasm, unspecified site (3) Diverticulosis of colon: Code(s): K57.30 - Diverticulosis of large intestine without perforation or abscess without bleeding (4) Hemorrhoids: Code(s): K64.9 - Unspecified hemorrhoids Plan 3- months sigmoid- Dr. Lazaro 1 [id number]. Malik Patient Instructions: A very pleasant 42-year-old female follows up after recent colonoscopy for rectal bleeding. Review procedure report and pathology as well discussed recommendations 3- months sigmoid- Dr. Lazaro 1 [id number]. Malik All first-degree relatives begin screening age 33 (typically go back 10 years) Opportunities for questions answered to her satisfaction Encouraged to call with any questions or concerns Coding Level of Care Code Est Pt Level 3 (29100) Diagnoses Sessile serrated polyp of colon D12.6 Tubular adenoma D36.9 Diverticulosis of colon K57.30 Hemorrhoids K64.9 Time Spent (min) 25
== END 2022-10-19 09:59 | disposition home or self-care (01) ==
LOC: HO.HGI 09:39
PROVIDERS: PCP Physician Assistant; Visit Provider Physician Assistant
DX: D12.6 Benign neoplasm of colon, unspecified (principal); D36.9 Benign neoplasm, unspecified site; K57.30 Diverticulosis of large intestine without perforation or abscess without bleeding; K64.9 Unspecified hemorrhoids
CPT/HCPCS: 99213

== ENCOUNTER → 2022-10-19 09:39 | Outpatient (BNVA) | payer OTHER, SELFPAY | PROVIDERS: PCP Physician Assistant; Visit Provider Physician Assistant ==

== ENCOUNTER 2022-10-29 08:03 | Outpatient (AMB) | payer OTHER, SELFPAY ==
--- NOTE | 2022-10-29 08:05 | A.OFFVIS_ITS ---
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 Patient reports that she feels that the screw is coming out and causing her stiffness and pain. She states that she noticed it about 2 months ago. Allergies methylisothiazolinone Allergy (Intermediate, Verified 10/29/22 08:10) Hives HPI Electrical Engineering Intern- Rt knee pain HPI Details 42-year-old female who presents in the office today, as a new patient, for an evaluation of right knee pain. The patient claims she feels the screw coming out of place, which causes her stiffness and pain. She states she began to feel this sensation 2 months ago, in 08/2022. She states she has something sticking out where she thinks the screw is. She states her pain increases when sitting with her knee at a 90 degrees angle. Patient has a history of right knee ACL reconstruction in 1998. [facility] Medical History IBS (irritable bowel syndrome) In vitro fertilization Low back pain Seasonal allergies Well woman exam Surgical History H/O repair of right rotator cuff History of hysteroscopy History of repair of anterior cruciate ligament of right knee Hx of colonoscopy Family History Maternal Aunt Colitis IBS (irritable bowel syndrome) Social History Household Members: Spouse Alcohol intake: current Patient Tobacco Use Status: Never used Tobacco Current occupational status: employed Female Reproductive History Menstrual Age of Menarche: 10 Review of Systems Const All systems reviewed & are unremarkable except as noted in HPI and below Physical Exam Vital Signs: BMI result Body Mass Index 22.8 Const General: cooperative and no acute distress Orientation/consciousness: patient oriented x3 Resp Effort & Inspection: normal respiratory effort and able to speak in complete sentences Cardio Peripheral pulses: Peripheral pulses 2+ throughout Skin General skin exam: no rashes or lesions noted Neuro General: patient oriented x3 Extrem Other: Right knee: Normal to inspection. No ecchymosis, erythema, or joint effusion. No tenderness to palpation to the medial or lateral joint lines. Full knee extension and flexion. Negative Victor Hugo's. Negative anterior draw. NVI. Assessment & Plan Assessment & Plan (1) History of repair of anterior cruciate ligament of right knee: Code(s): Z98.890 - Other specified postprocedural states Plan Ms. Adame is a 42-year-old female who presents in the office today, as a new patient, for an evaluation of right knee pain. The patient claims she feels the screw coming out of place, which causes her stiffness and pain. She states she began to feel this sensation 2 months ago, in 08/2022. She states she has something sticking out where she thinks the screw is. She states her pain increases when sitting with her knee at a 90 degrees angle. Patient has a history of right knee ACL reconstruction in 1998. I discussed the role of cortisone injection in the right knee. However due to her pain not being present in the office today we have agreed to defer at this time. She will call the office should she decide to move forward with the cortisone injection. Follow up will be PRN, or sooner if needed. X-rays of the right knee which were obtained while in the office today and were reviewed by me, Bell Rizo PA-C, revealed no acute fractures or dislocation. Evidence of 2 prior ACL screws that are intact and in appropriate position. Orders: Orders XR knee RT 2V Today M25.569 - Pain in unspecified knee XR knee standing BI Today M25.569 - Pain in unspecified knee Patient Instructions: Scribed for Bell Rizo PA-C by Jesenia Willoughby medical corps officer, on 10/29/2022 at 8:05 am, EST. Coding Level of Care Code New Pt Level 3 (15254) Diagnoses History of repair of anterior cruciate ligament of right knee Z98.890
[2022-10-29 08:09] VITALS: BMI 22.8
== END 2022-10-29 08:38 | disposition home or self-care (01) ==
PROVIDERS: PCP Physician Assistant; Visit Provider Physician Assistant
DX: S83.511D Sprain of anterior cruciate ligament of right knee, subsequent encounter (principal)
CPT/HCPCS: 99203

== ENCOUNTER 2022-10-29 10:02 | Outpatient (REF) | payer OTHER, SELFPAY ==
--- NOTE | ~2022-10-29 | XR_ITS ---
EXAMINATION: XR KNEE, RIGHT XR KNEE AP STANDING CLINICAL INFORMATION: Pain. COMPARISON: Radiographs dated 07/28/2017. TECHNIQUE: Four views of the right knee. AP bilateral standing view of the knees was obtained. FINDINGS: No fracture or dislocation. There is a very small right knee joint effusion. Alignment is anatomic, without varus or valgus configuration seen bilaterally. The bilateral joint spaces are maintained. There has been a prior right ACL repair. There are minimal peripheral osteophytes noted of the upper and lower articular surfaces of the right patella. No abnormal soft tissue calcification. XR/XR knee RT 2V IMPRESSION: 1. No fracture or dislocation is seen. 2. There is a very small right knee joint effusion. 3. 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
--- NOTE | ~2022-10-29 | XR_ITS ---
EXAMINATION: XR KNEE, RIGHT XR KNEE AP STANDING CLINICAL INFORMATION: Pain. COMPARISON: Radiographs dated 07/28/2017. TECHNIQUE: Four views of the right knee. AP bilateral standing view of the knees was obtained. FINDINGS: No fracture or dislocation. There is a very small right knee joint effusion. Alignment is anatomic, without varus or valgus configuration seen bilaterally. The bilateral joint spaces are maintained. There has been a prior right ACL repair. There are minimal peripheral osteophytes noted of the upper and lower articular surfaces of the right patella. No abnormal soft tissue calcification. XR/XR knee standing BI IMPRESSION: 1. No fracture or dislocation is seen. 2. There is a very small right knee joint effusion. 3. 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
== END 2022-10-29 10:03 | disposition home or self-care (01) ==
LOC: HO.HOSX 10:02
PROVIDERS: Visit Provider Physician Assistant
DX: M25.561 Pain in right knee (principal); M25.562 Pain in left knee
CPT/HCPCS: 73560; 73565

== ENCOUNTER 2023-01-03 08:33 | Outpatient (AMB) | payer OTHER, SELFPAY ==
--- NOTE | 2023-01-03 08:35 | MHC.OFFVIS ---
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 No complaints. Last Pap/HPV was negative in 10/18 Last Mammogram was BI-RADS 2 in 03/22 [facility], [facility] Medical History In vitro fertilization IBS (irritable bowel syndrome) Low back pain Seasonal allergies Well woman exam Surgical History Hx of colonoscopy History of hysteroscopy History of repair of anterior cruciate ligament of right knee H/O repair of right rotator cuff Family History Maternal Aunt Colitis IBS (irritable bowel syndrome) Social History Household Members: Spouse Alcohol intake: current Patient Tobacco Use Status: Never used Tobacco Current occupational status: employed Female Reproductive History Menstrual Age of Menarche: 10 Date of last menstrual period: 12/31/22 control method: progestin IUCD (Mirena) Total pregnancies: 1 Full term: 1 Number of Living Children: 1 Review of Systems Const All systems reviewed & are unremarkable except as noted in HPI and below Card Reports as per HPI Resp Reports as per HPI GI Reports as per HPI and Reports no additional complaints Reports as per HPI Physical Exam Vital Signs: Last Vital Signs BP 100/66 01/03/23 08:38 BMI result Body Mass Index 23.9 Const General: cooperative, healthy appearing and comfortable Chest Chest palpation & inspection: normal inspection of the chest and normal palpation of entire chest wall Breast/axilla inspection: normal inspection of the breasts and normal inspection of the axillae Breast/axilla palpation: normal palpation of the breasts, normal palpation of the axillae and no axillary lymphadenopathy Resp Effort & Inspection: normal respiratory effort Auscultation: clear to auscultation bilaterally Percussion: percussion normal Cardio Palpation: normal PMI Rate: regular rate Rhythm: regular rhythm Heart sounds: no murmurs and no rubs Peripheral pulses: Peripheral pulses 2+ throughout GI Inspection: Yes normal to inspection Palpation (GI): Soft to palpation, nontender, no guarding, not rigid and No hepatosplenomegaly present Percussion: Yes normal to percussion Auscultation: normal bowel sounds Rectal Exam - Female: deferred General: Yes bladder normal to palpation External Female Exam: No lesion Speculum Exam - Vagina: normal appearance of the vagina, normal palpation, normal vaginal discharge and not erythematous Speculum Exam - Cervix: normal appearance of the cervix and normal palpation Bimanual exam- vagina & uterus: normal bimanual exam, normal palpation, uterine size normal, bladder normal to palpation, consistency normal and normal palpation Bimanual Exam- Adnexa, other: normal adnexae, no masses and no tenderness Assessment & Plan Assessment & Plan (1) Well woman exam: Code(s): Z01.419 - Encounter for gynecological examination (general) (routine) without abnormal findings Plan: Cotesting not indicated this year. Instructions given the patient to schedule next screening Mammogram in 03/23. Counseled the patient about the recommended dietary allowance of 1000 mg of Calcium & 600 IU of vitamin D. The patient was instructed to perform monthly self-breast exams and to schedule an annual exam in a year; All questions answered and the patient verbalized understanding. Instructed the patient to schedule annual exam in a year Coding Level of Care Code Est Pt Prev Care 40-64y(58726) Diagnoses Well woman exam Z01.419
[2023-01-03 08:38] VITALS: BP 100/66; BMI 23.9
== END 2023-01-03 08:56 | disposition home or self-care (01) ==
PROVIDERS: Visit Provider Obstetrics & Gynecology
DX: Z01.419 Encounter for gynecological examination (general) (routine) without abnormal findings (principal)
CPT/HCPCS: 99396

== ENCOUNTER → 2023-01-03 08:33 | Outpatient (BNVA) | payer OTHER, SELFPAY | PROVIDERS: Visit Provider Obstetrics & Gynecology ==

== ENCOUNTER 2023-03-24 12:06 | Day surgery (SDC) | payer OTHER, SELFPAY ==
[2023-03-22 14:31] VITALS: BMI 22.5
--- NOTE | 2023-03-23 12:00 | P.CONAN_ITS ---
Documented by User: Magalie Henson NP 03/23/23 12:00 HPI - Anesthesia Eval Consult details Narrative: 43yo F for Sigmoidoscopy Flexible PMFSH Active Problems Active Problems: All Active Problems (Updated 10/29/22 @ 08:38 by Jesenia Willoughby) History of repair of anterior cruciate ligament (Acute) Retained orthopedic hardware (Acute) Hemorrhoids (Acute) Diverticulosis of colon (Acute) Tubular adenoma (Acute) Sessile serrated polyp of colon (Acute) Rectal bleeding (Acute) Abnormal ultrasound of endometrium (Acute) Corpus luteum cyst (Acute) Well woman exam (Acute) Endometrial polyp (Acute) Abnormal uterine bleeding (AUB) (Acute) Past Medical History Medical History In vitro fertilization IBS (irritable bowel syndrome) Low back pain Seasonal allergies Well woman exam Family History Family History Maternal Aunt Colitis IBS (irritable bowel syndrome) Family history of problems with anesthesia: No Surgical History Surgical History Hx of colonoscopy History of hysteroscopy History of repair of anterior cruciate ligament of right knee H/O repair of right rotator cuff History of Problems with Anesthesia: Yes (PONV) Social History Social History Household Members: Spouse Alcohol intake: current Alcohol intake frequency: holidays/special occasions only Patient Tobacco Use Status: Never used Tobacco Are you DNR?: No Advance Directives: No Advance Directives Information Provided: Yes Nutrition Risks: No Nutritional Risk Patient : No FDLMP: 10days ago Current occupational status: employed Meds Allergies Allergy/AdvReac Type Severity Reaction Status Date / Time methylisothiazolinone Allergy Intermediate Hives Verified 01/03/23 08:39 Home Medications Medication Instructions Recorded Confirmed Last Taken Type levocetirizine 5 mg tablet (Xyzal) 5 mg PO BEDTIME 10/27/20 09/27/22 Unknown History levonorgestrel 21 mcg/24 hours (8 intrauterine 08/04/22 Unknown History yrs) 52 mg intrauterine device (Mirena) Exam Height,Weight and Vital Signs: Height 5 ft 5 in Weight 61.235 kg Assessment and Plan Assessment Anesthesia Assessment: Chart Reviewed Final Anesthetic Review Family History of Problems with Anesthesia: No History of Problems with Anesthesia: Yes (PONV) Documented by User: Kirsten Mata MD 03/24/23 13:12 [facility] Past Medical History Medical History In vitro fertilization IBS (irritable bowel syndrome) Low back pain Seasonal allergies Well woman exam Family History Family History Maternal Aunt Colitis IBS (irritable bowel syndrome) Surgical History Surgical History Hx of colonoscopy History of hysteroscopy History of repair of anterior cruciate ligament of right knee H/O repair of right rotator cuff Social History Social History Household Members: Spouse Alcohol intake: current Alcohol intake frequency: holidays/special occasions only Patient Tobacco Use Status: Never used Tobacco Are you DNR?: No Advance Directives: No Advance Directives Information Provided: Yes Nutrition Risks: No Nutritional Risk Patient : No FDLMP: 10days ago Current occupational status: employed Meds Allergies Allergy/AdvReac Type Severity Reaction Status Date / Time methylisothiazolinone Allergy Intermediate Hives Verified 01/03/23 08:39 Home Medications Medication Instructions Recorded Confirmed Last Taken Type levocetirizine 5 mg tablet (Xyzal) 5 mg PO BEDTIME 10/27/20 09/27/22 Unknown History levonorgestrel 21 mcg/24 hours (8 intrauterine 08/04/22 Unknown History yrs) 52 mg intrauterine device (Mirena) Exam Airway Mallampati Class: II TM Dist: >3cm Neck ROM: Full Heart: rrr Lungs: cta Assessment and Plan Assessment Anesthesia Assessment: Anesthesia Plan Discussed Final Anesthetic Review NPO: Yes ASA Class: II Final Preanesthetic Review: No Changes in Pt Med Stat, Meds/Allgs Chart Reviewed, Consent Obtained/Reviewed and Anes Risks/Benef Reviewed Patient Risk: Low Procedure Risk: Low Anesthetic Plan Anesthetic Plan: MAC: Disposition: Standard PACU
--- NOTE | 2023-03-24 11:48 | MHC.SHP ---
Pre-Procedural Eval Section A Date of Service: 03/24/23 Section B Chief Complaint: Benign neoplasm of colon, unspecified Relevant Family History (Specify if Yes): No Relevant Social History: None Present Medications: see Short Stay Collaborative assessment Medical History: Significant History ( IBS (irritable bowel syndrome) In vitro fertilization Low back pain Seasonal allergies) History of Previous Operations: Relevant previous surgery/procedure and date(s) ( H/O repair of right rotator cuff History of hysteroscopy History of repair of anterior cruciate ligament of right knee) Allergies: Allergies Allergy/AdvReac Type Severity Reaction Status Date / Time methylisothiazolinone Allergy Intermediate Hives Verified 01/03/23 08:39 Review of Systems Sugical H&P ROS: Negative: Constitution, Cardiovascular, Respiratory, Neurological, Psychiatric, Hem-Onc, Allergic/Immunologic, Gastrointestinal, Genitourinary, Musculoskeletal, Integumentary, Endocrine and Eyes/Ears/Nose/Throat Exam Surgical H&P Exam: Normal: HEENT, Normal: Heart, Normal: Lungs, Normal: Extremities, Normal: Abdomen, Normal: Skin and Normal: Neurological Plan Diagnosis/Plan: Unchanged I have reviewed the history and physical and performed a pertinent physical examination on my patient. No changes have occurred unless specified. Time Spent With Patient Time: Total time managing care of this patient today ____ minutes.
[2023-03-24 12:25] VITALS: BP 124/82; PULSE 100; RESP 20; TEMP 36.8; O2SAT 98; BMI 22.3
[2023-03-24 12:42] LABS: UPreg QC Valid YES; Urine Pregnancy NEGATIVE (NEGATIVE)
[2023-03-24] MEDS: Lactated Ringers 1,000 ML 100 ML IVCONT (12:43)
[2023-03-24] MEDS: Sodium Phosphate,Mono-Dibasic 133 ML ENEMA PR ×2 (12:44→13:20)
--- NOTE | 2023-03-24 13:14 | W.PM.OPN ---
Operative Note Operative Note Date of Service: 03/24/23 Narrative: Operative Information Procedure Description: sigmoidoscopy Indication: rectal bleeding Anesthesia: MAC Sigmoidoscopy Instrument: Upper endoscope Colonoscopy Monitoring: Vital signs and clinical assessment, continuous EKG monitoring, Pulse oximetry, Carbon Dioxide monitoring and blood pressure monitoring were done throughout the procedure. Procedure: The patient was placed in the left lateral decubitis position and pre-procedure medications were administered. After a digital rectal examination of the ano-rectum, the video colonoscope was inserted into the rectum and advanced through the colon to the transverse colon. The scope was slowly withdrawn in a retrograde panoramic fashion and the colon mucosa was carefully examined including a retroflexed view of the rectum. Findings and interventions are described below. Procedure Difficulty: easy Findings: Transverse Colon -normal Descending Colon:normal Sigmoid Colon: normal Rectum: Retroflexion with small internal hemorrhoids, grade I, tattoo noted from prior procedure, bx taken, no gross residual adenomatous tissue seen Anorectum - normal Colon preparation:good Impression and Post Procedure Diagnosis: internal hemorrhoids Plan: Repeat colonoscopy in 1 year due to hx of multiple polyps, consider adding EGD next time as patient said there is hx of stomach cancer in family as well Above findings were reviewed with the patient and relevant handouts were provided if indicated.
--- NOTE | 2023-03-24 13:17 | PC.NURSE ---
pt didnot need second fleets yellow results
[2023-03-24 13:58] VITALS: BP 93/54; PULSE 83; RESP 19; TEMP 36.6; O2SAT 98
[2023-03-24 14:13] VITALS: BP 110/68; PULSE 76; RESP 18; TEMP 36.6; O2SAT 100
== END 2023-03-24 14:32 | disposition home or self-care (01) ==
PROVIDERS: Nurse Practitioner; PCP Physician Assistant; Visit Provider Internal Medicine Gastroenterology
PROC: 0DJD8ZZ Inspection of Lower Intestinal Tract, Via Natural or Artificial Opening Endoscopic (ICD-10-PCS; CPT 45330; principal; 2023-03-24 13:40)
DX: K62.5 Hemorrhage of anus and rectum (principal); Z86.010 Personal history of colon polyps; K64.0 First degree hemorrhoids; R10.32 Left lower quadrant pain; K58.9 Irritable bowel syndrome, unspecified; Z80.0 Family history of malignant neoplasm of digestive organs; J30.2 Other seasonal allergic rhinitis; Z79.899 Other long term (current) drug therapy; Z88.8 Allergy status to other drugs, medicaments and biological substances
CPT/HCPCS: 45330; 81025; 88305; J2704

== ENCOUNTER → 2023-03-24 12:06 | Outpatient (BNV) | payer OTHER, SELFPAY | PROVIDERS: PCP Physician Assistant; Visit Provider Internal Medicine Gastroenterology | DX: K62.5 Hemorrhage of anus and rectum (principal); K64.0 First degree hemorrhoids | CPT/HCPCS: 45331 ==

== ENCOUNTER 2023-04-07 10:27 | Outpatient (AMB) | payer OTHER, SELFPAY ==
[2023-04-07 10:28] VITALS: BP 140/75; PULSE 101; BMI 23.0
--- NOTE | 2023-04-07 10:28 | A.OFFVIS_ITS ---
Intake Vital Signs 04/07/23 10:28 Height 5 ft 5 in Weight 138 lb 7.205 oz BMI 23.0 BP 140/75 H Blood Pressure Location Rt brachial Position Sitting Pulse 101 H Pulse Source Pulse Oximeter Intake Visit Reasons: S/P Sigmoid; Dr. Hughes Intake Note: Patient here s/p sigmoidoscopy with Dr. Hughes on 03-24-23. Pt states she is feeling well and denies any concerns at this time. Patient was recommended repeat colonoscopy next year in 2024. Allergies methylisothiazolinone Allergy (Intermediate, Verified 04/07/23 10:30) Hives Medication List - Last Reconciled 04/07/23 by Juanita Batista PA-C levocetirizine (Xyzal) 5 mg PO BEDTIME levonorgestrel (Mirena) intrauterine HPI HPI Comments History of Present Illness Details Very pleasant 43-year-old female personal history of multiple colon polyps follows up after recent sigmoidoscopy-following a full colonoscopy-to assess polypectomy site She tolerated procedure well She does family history multiple cancers-she is well has history endometrial polyps this is concerning to her Reviewed procedure report, pathology as well as recommendations She is agreeable to repeat colonoscopy as well as have an EGD. She has no GI complaints today. She has no complaints of nausea, vomiting, abdominal pain, fever or chills PFSH Medical History In vitro fertilization IBS (irritable bowel syndrome) Low back pain Seasonal allergies Well woman exam Surgical History Hx of sigmoidoscopy Hx of colonoscopy History of hysteroscopy History of repair of anterior cruciate ligament of right knee H/O repair of right rotator cuff Family History Maternal Aunt Colitis IBS (irritable bowel syndrome) Social History Household Members: Spouse Alcohol intake: current Alcohol intake frequency: holidays/special occasions only Patient Tobacco Use Status: Never used Tobacco Current occupational status: employed Female Reproductive History Menstrual Age of Menarche: 10 Review of Systems Const All systems reviewed & are unremarkable except as noted in HPI and below Physical Exam Vital Signs: Last Vital Signs Pulse 101 H 04/07/23 10:28 BP 140/75 H 04/07/23 10:28 BMI result Body Mass Index 23.0 Const General: cooperative, healthy appearing, comfortable and no acute distress Nutritional Appearance: thin Orientation/consciousness: patient oriented x3 Limitations: no limitations Eyes Sclerae: sclerae normal Resp Effort & Inspection: normal respiratory effort and able to speak in complete sentences Neuro General: patient oriented x3 Extrem General: Yes full ROM Psych Appearance: grossly normal and well kempt Mental Status: mental status grossly normal Speech and movement: Normal speech and movement present and Clear speech present Affect: normal affect Attitude: cooperative Thought process: Normal thought process present Thought content: Normal thought content present Insight: Good insight present (Psych) Judgement: Good judgement present (Psych) Results Reviewed Results Reviewed: 02/2023- Findings: Transverse Colon -normal Descending Colon:normal Sigmoid Colon: normal Rectum: Retroflexion with small internal hemorrhoids, grade I, tattoo noted from prior procedure, bx taken, no gross residual adenomatous tissue seen Anorectum - normal Colon preparation:good Impression and Post Procedure Diagnosis: internal hemorrhoids Plan: Repeat colonoscopy in 1 year due to hx of multiple polyps, consider adding EGD next time as patient said there is hx of stomach cancer in family as well marija: Romina Adame Age/Sex: 43/F Attending: Josh Hughes MD : 1980 Submitted by: Josh Hughes MD Copies to: SAMUEL ESPINOZA MR #: [id number] Status: [facility] Collected: 03/24/23 Location: [facility] [[email or web address]] Received: 03/24/23 Diagnosis Rectum, biopsy: Rectal mucosa within normal limits. Clinical History Pre-Op Dx: History of polyps Post-Op Dx: Internal hemorrhoids Microscopic Description Microscopic sections reviewed. Material Received Rectum biopsy Gross Description Received in formalin labeled rectum biopsy? are 3 pieces of vargas tissue measuring from 0.1-0.4 cm, all submitted in cassette labeled A. FM Copies To Josh Hughes MD [address] [place] [address] [place] [address] SAMUEL ESPINOZA [address] [place] [address] [id number] NOTE: Unless otherwise stated, all tissue is formalin-fixed and paraffin- embedded. Some or all of the immunohistochemical tests reported herein may have been developed and their performance characteristics determined by [facility]. They have not been cleared or approved by the U.S. Food and Drug Administration (FDA). However, the FDA has determined that such clearance or approval is not necessary. This laboratory is certified under the Clinical Laboratory Improvement Amendments of 1988 (CLIA) as qualified to perform high complexity clinical laboratory testing. Electronically Signed By: Trent Campbell MD 03/27/23 0907 Patient: Romina Adame Age/Sex: 43/F MR#: [id number] Page 1 of 08/2022 mpression and Post Procedure Diagnosis: Colonoscopy Findings: Four medium sized and one large polyps removed Random biopsies were obtained from the right and left colon to check for micr oscopic colitis Moderate diverticulosis seen in the sigmoid colon Moderate hemorrhoids on retroflexed exam. Rectal bleeding likely from large rectal polyp Plan: Await pathology results Patient has an appointment on 10/11/22 in the GI Clinic with SILVIO Silverio. Repeat Colonoscopy interval based on path results - in 1 year if polyps are adenomatous and to check polypectomy site in the rectum and 10 years if polyps are hyperplastic. Assessment & Plan Assessment & Plan (1) Sessile serrated polyp of colon: Comment: History-she concerned-given her history and family history-will go ahead and schedule her appropriately-certainly to avoid any further stress on her part. Code(s): D12.6 - Benign neoplasm of colon, unspecified Plan: Discuss timing procedures-reasonable to follow-up as request (2) Tubular adenoma: Comment: History Code(s): D36.9 - Benign neoplasm, unspecified site Plan EGD/ colon- Dr. Hughes- anytime from August- MG prep Orders: Orders EGD/Marcy Combo - GI Use Only Today D12.6 - Benign neoplasm of colon, unspecified, D36.9 - Benign neoplasm, unspecified site Medications: New bisacodyl (Dulcolax (bisacodyl)) Day before procedure @ 12 noon Take 4 tablets by mouth followed by large glass of water 20 mg (4 x 5 mg) PO ONCE 1 day PRN 4 tabs 0RF colonoscopy prep Z12.11 - Encounter for screening for malignant neoplasm of colon polyethylene glycol 3350 (Miralax) Take as directed by mouth the day before your procedure. 238 grams PO ONCE 1 day PRN 238 grams 0RF laxative effect Patient Instructions: Very pleasant 43-year-old female history of multiple polyps-does cause her concern, certainly understandable.. Will schedule EGD and full colonoscopy with Dr. Hughes-she is agreed to the plan MiraLax Gatorade prep Encouraged to call questions or concerns Coding Level of Care Code Est Pt Level 3 (85716) Diagnoses Sessile serrated polyp of colon D12.6 Tubular adenoma D36.9 Time Spent (min) 20
== END 2023-04-07 11:08 | disposition home or self-care (01) ==
PROVIDERS: PCP Physician Assistant; Visit Provider Physician Assistant
DX: D12.6 Benign neoplasm of colon, unspecified (principal); D36.9 Benign neoplasm, unspecified site
CPT/HCPCS: 99213

== ENCOUNTER → 2023-04-07 10:27 | Outpatient (BNVA) | payer OTHER, SELFPAY | PROVIDERS: PCP Physician Assistant; Visit Provider Physician Assistant ==

== ENCOUNTER 2023-05-23 08:41 | Outpatient (REF) | payer OTHER, SELFPAY ==
--- NOTE | ~2023-05-23 | MM_ITS ---
EXAMINATION: MM SCREENING DIGITAL BREAST TOMOSYNTHESIS, BILATERAL CLINICAL INFORMATION: Screening. Asymptomatic. COMPARISON: Mammography: 03/17/2022, 03/11/2021. Left breast ultrasound 03/18/2021. TECHNIQUE: Digital breast tomosynthesis is performed in both the craniocaudal and mediolateral oblique views along with computer-aided detection (CAD). Synthesized 2D images are generated from the tomosynthesis. FINDINGS: The breasts are extremely dense, which lowers the sensitivity of mammography (ACR BI-RADS breast composition Category d). Large oval masses in the upper outer left breast are consistent with known benign cysts as seen on prior ultrasound. There are small circumscribed oval and round masses in both breasts consistent with numerous cysts/fibrocystic changes. These appear stable from the prior exam. Otherwise, no suspicious calcifications or areas of architectural distortion are present. There are no skin or axillary abnormalities. MM/MM tomosynthesis screening BI IMPRESSION: -No mammographic evidence of malignancy. -Extremely dense fibrocystic breast parenchyma, with numerous underlying bilateral cysts, benign. No significant interval change in the examination. -Patient's with this degree of breast density may benefit from ultrasound screening as an adjunct to annual mammographic screening, usually performed 6 months after screening mammography. ASSESSMENT: BI-RADS BI-RADS 2 - Benign Findings RECOMMENDATION: Routine annual mammography screening. 1 year F/U This examination should not preclude the clinical evaluation of a suspicious palpable abnormality. This patient's information was entered into a reminder system with a target due date for their next mammogram.
== END 2023-05-23 08:42 | disposition home or self-care (01) ==
LOC: HO.MAMMO 08:41
PROVIDERS: PCP Physician Assistant; Visit Provider Physician Assistant
DX: Z12.31 Encounter for screening mammogram for malignant neoplasm of breast (principal)
CPT/HCPCS: 77063; 77067

== ENCOUNTER → 2023-05-23 08:45 | Outpatient (BNV) | payer OTHER, SELFPAY | PROVIDERS: PCP Physician Assistant; Visit Provider Radiology Diagnostic Radiology | DX: Z12.31 Encounter for screening mammogram for malignant neoplasm of breast (principal) | CPT/HCPCS: 77063; 77067 ==

== ENCOUNTER 2023-08-06 09:24 | Outpatient (REF) | payer OTHER, SELFPAY ==
[2023-08-06 10:48] LABS: Anion Gap 10 (12-20); Blood Urea Nitrogen 15 mg/dL (9-16); Calcium 9.3 mg/dL (8.4-10.2); Carbon Dioxide 25 mmol/L (22-29); Chloride 108 mmol/L (96-108); Cholesterol 172 mg/dL (<200); Estimated Glomerular Filt Rate > 60; Glucose Random 90 mg/dL (60-115); HDL Cholesterol 52 mg/dL (>40); LDL Cholesterol Calculated 103 mg/dL (<100); Potassium 4.1 mmol/L (3.3-5.1); Sodium 139 mmol/L (135-145); Triglycerides 87 mg/dL (<150)
== END 2023-08-06 09:25 | disposition home or self-care (01) ==
LOC: HO.LAB 09:24
PROVIDERS: PCP Physician Assistant; Visit Provider Physician Assistant
DX: Z13.9 Encounter for screening, unspecified (principal)
CPT/HCPCS: 36415; 80048; 80061

== ENCOUNTER 2023-11-22 06:28 | Day surgery (SDC) | payer OTHER, SELFPAY ==
[2023-11-18 14:02] VITALS: BMI 23.0
[2023-11-22 06:55] VITALS: BP 122/79; PULSE 90; RESP 18; TEMP 36.4; O2SAT 99; BMI 22.9
[2023-11-22] MEDS: Lactated Ringers 1,000 ML 100 ML IVCONT (07:14)
--- NOTE | 2023-11-22 07:15 | HO.ANESPROP2 ---
Documented by User: Magalie Henson NP 11/21/23 09:03 HPI - Anesthesia Eval Consult details Narrative: 43yo F for Upper Endoscopy and Colonoscopy [facility] Active Problems Active Problems: All Active Problems History of repair of anterior cruciate ligament (Acute) Retained orthopedic hardware (Acute) Hemorrhoids (Acute) Diverticulosis of colon (Acute) Tubular adenoma (Acute) Sessile serrated polyp of colon (Acute) Rectal bleeding (Acute) Abnormal ultrasound of endometrium (Acute) Corpus luteum cyst (Acute) Well woman exam (Acute) Endometrial polyp (Acute) Abnormal uterine bleeding (AUB) (Acute) Past Medical History Medical History (Updated 04/07/23 @ 11:05 by Juanita Batista PA-C) In vitro fertilization IBS (irritable bowel syndrome) Low back pain Seasonal allergies Well woman exam Family History Family History Maternal Aunt Colitis IBS (irritable bowel syndrome) Family history of problems with anesthesia: No Surgical History Surgical History (Updated 11/22/23 @ 07:06 by Anabel Mcfarland RN) History of esophagogastroduodenoscopy Hx of sigmoidoscopy Hx of colonoscopy History of hysteroscopy History of repair of anterior cruciate ligament of right knee H/O repair of right rotator cuff History of Problems with Anesthesia: Yes (PONV) Social History Social History Household Members: Spouse Alcohol intake: current Alcohol intake frequency: holidays/special occasions only Patient Tobacco Use Status: Never used Tobacco Have you been hit, kicked, punched, or otherwise hurt by someone within the past year? If so, by whom?: No Are you DNR?: No Advance Directives: No Advance Directives Information Provided: Yes Current occupational status: employed Meds Allergies Allergy/AdvReac Type Severity Reaction Status Date / Time methylisothiazolinone Allergy Intermediate Hives Verified 04/07/23 10:30 Home Medications ?Medication ?Instructions ?Recorded ?Confirmed ?Last Taken ?Type levocetirizine 5 mg tablet (Xyzal) 5 mg PO BEDTIME 10/27/20 11/22/23 11/21/23 History levonorgestrel 21 mcg/24 hr (up to intrauterine 08/04/22 Unknown History 8 years) 52 mg intrauterine device (Mirena) Exam Height,Weight and Vital Signs: Height 5 ft 5 in Weight 62.8 kg Assessment and Plan Assessment Anesthesia Assessment: Chart Reviewed Final Anesthetic Review Family History of Problems with Anesthesia: No History of Problems with Anesthesia: Yes (PONV) Documented by User: Merly Liang, 11/22/23 07:20 [facility] Past Medical History Medical History (Updated 04/07/23 @ 11:05 by Juanita Batista PA-C) In vitro fertilization IBS (irritable bowel syndrome) Low back pain Seasonal allergies Well woman exam Family History Family History Maternal Aunt Colitis IBS (irritable bowel syndrome) Family history of problems with anesthesia: No Surgical History Surgical History (Updated 11/22/23 @ 07:06 by Anabel Mcfarland RN) History of esophagogastroduodenoscopy Hx of sigmoidoscopy Hx of colonoscopy History of hysteroscopy History of repair of anterior cruciate ligament of right knee H/O repair of right rotator cuff History of Problems with Anesthesia: Yes (PONV) Social History Social History Household Members: Spouse Alcohol intake: current Alcohol intake frequency: holidays/special occasions only Patient Tobacco Use Status: Never used Tobacco Have you been hit, kicked, punched, or otherwise hurt by someone within the past year? If so, by whom?: No Are you DNR?: No Advance Directives: No Advance Directives Information Provided: Yes Current occupational status: employed Meds Allergies Allergy/AdvReac Type Severity Reaction Status Date / Time methylisothiazolinone Allergy Intermediate Hives Verified 04/07/23 10:30 Home Medications ?Medication ?Instructions ?Recorded ?Confirmed ?Last Taken ?Type levocetirizine 5 mg tablet (Xyzal) 5 mg PO BEDTIME 10/27/20 11/22/23 11/21/23 History levonorgestrel 21 mcg/24 hr (up to intrauterine 08/04/22 Unknown History 8 years) 52 mg intrauterine device (Mirena) Exam Exam Date and Time: 11/22/23 0715 Height,Weight and Vital Signs: Height 5 ft 5 in Weight 62.8 kg Vital Signs Temperature 97.5 F 11/22/23 06:55 Pulse Rate 90 11/22/23 06:55 Respiratory Rate 18 11/22/23 06:55 Blood Pressure 122/79 11/22/23 06:55 Pulse Oximetry 99 11/22/23 06:55 Oxygen Delivery Method Room Air 11/22/23 06:55 Temperature 97.5 F 11/22/23 06:55 Pulse Rate 90 11/22/23 06:55 Respiratory Rate 18 11/22/23 06:55 Blood Pressure 122/79 11/22/23 06:55 Pulse Oximetry 99 11/22/23 06:55 Oxygen Delivery Method Room Air 11/22/23 06:55 Airway Mallampati Class: I TM Dist: >3cm Neck ROM: Full Loose/Missing/Broken Teeth: No (patient denies any loose or broken teeth) Heart: S1S2 Lungs: CTAB Assessment and Plan Assessment Anesthesia Assessment: Anesthesia Plan Discussed and Chart Reviewed Final Anesthetic Review Family History of Problems with Anesthesia: No History of Problems with Anesthesia: Yes (PONV) NPO: Yes ASA Class: II Final Preanesthetic Review: No Changes in Pt Med Stat, Meds/Allgs Chart Reviewed, Consent Obtained/Reviewed and Anes Risks/Benef Reviewed Patient Risk: Low Procedure Risk: Low Anesthetic Plan Anesthetic Plan: MAC: and Agree w/ Assess. and Plan Disposition: Standard PACU
[2023-11-22 07:25] LABS: UPreg QC Valid YES; Urine Pregnancy NEGATIVE (NEGATIVE)
--- NOTE | 2023-11-22 07:34 | MHC.SHP ---
Pre-Procedural Eval Section A - 24 Hr Update-Section A only Date of Service: 11/22/23 Section B - Complete if H&P > 30 days Chief Complaint: Benign neoplasm of colon, unspecified Details of Present Illness: fh of stomach cancer Relevant Family History (Specify if Yes): Yes Relevant Social History: None Present Medications: see Short Stay Collaborative assessment Medical History: Significant History (In vitro fertilization IBS (irritable bowel syndrome) Low back pain Seasonal allergies) History of Previous Operations: Relevant previous surgery/procedure and date(s) (History of esophagogastroduodenoscopy Hx of sigmoidoscopy Hx of colonoscopy History of hysteroscopy History of repair of anterior cruciate ligament of right knee H/O repair of right rotator cuff) Allergies: Allergies Allergy/AdvReac Type Severity Reaction Status Date / Time methylisothiazolinone Allergy Intermediate Hives Verified 04/07/23 10:30 Review of Systems Sugical H&P ROS: Negative: Constitution, Cardiovascular, Respiratory, Neurological, Psychiatric, Hem-Onc, Allergic/Immunologic, Gastrointestinal, Genitourinary, Musculoskeletal, Integumentary, Endocrine and Eyes/Ears/Nose/Throat Exam Surgical H&P Exam: Normal: HEENT, Normal: Heart, Normal: Lungs, Normal: Extremities, Normal: Abdomen, Normal: Skin and Normal: Neurological Plan Diagnosis/Plan: Unchanged I have reviewed the history and physical and performed a pertinent physical examination on my patient. No changes have occurred unless specified. Time Spent With Patient Time: Total time managing care of this patient today ____ minutes.
--- NOTE | 2023-11-22 08:13 | P.OPN-COLO_ITS ---
Colonoscopy Operative Note Operative Note Date of Service: 11/22/23 Narrative: Operative Information Procedure Description: EGD, Colonoscopy Indication: FH of stomach cancer, hx of polyps Anesthesia: MAC FLEXIBLE TRANSORAL UPPER GASTROINTESTINAL ENDOSCOPY AND COLONOSCOPY PROCEDURE NOTE UPPER ENDOSCOPY Consent: Indications for the procedure and potential complications of bleeding, perforation, reaction to medications and missed diagnosis were discussed with the patient and informed consent was obtained. Instrument: Olympus GIF H 190 J mid size upper endoscope Monitoring: Vital signs and clinical assessment, continuous EKG monitoring, Pulse oximetry, Carbon Dioxide monitoring and blood pressure monitoring were done throughout the procedure. Procedure: The patient was placed in the left lateral decubitis position and pre-procedure medications were administered and a bite block was placed. The endoscope was inserted into the mouth and advanced under direct vision to the third part of duodenum. A careful inspection was made as the upper endoscope was withdrawn including a retroflexed examination of the proximal stomach; Findings and interventions are described below. Findings: Larynx:normal Esophagus: GE junction at 40 cm, diaphragm hiatus at 40 cm, partial schatzki ring with mild esophagitis noted, bx taken from GEJ and distal esophagus Stomach: Mild erythema. Biopsies were obtained. Grade 2 flap valve on retroflexed examination of the cardia. Duodenum: Normal bulb and descending duodenum, Intervention: Biopsies as noted above, COLONOSCOPY Instrument: Olympus variable stiffness pediatric scope 190L Colonoscopy Monitoring: Vital signs and clinical assessment, continuous EKG monitoring, Pulse oximetry, Carbon Dioxide monitoring and blood pressure monitoring were done throughout the procedure. Colon withdrawal time was 12 minutes. Procedure: The patient was placed in the left lateral decubitis position and pre-procedure medications were administered. After a digital rectal examination of the ano-rectum, the video colonoscope was inserted into the rectum and advanced through the colon to the cecum/TI. The colonoscope was slowly withdrawn in a retrograde panoramic fashion and the colon mucosa was carefully examined including a retroflexed view of the rectum. Findings and interventions are described below. Procedure Difficulty:moderate Findings: Terminal Ileum-normal Cecum:normal right sided retroflexion- normal Ascending Colon: normal Transverse Colon -normal Descending Colon: 6-8 mm sessile polyp removed with cold snare Sigmoid Colon: 5-6 mm sessile polyp removed with cold biopsy forceps Rectum: Retroflexion with moderate sized internal hemorrhoids, grade I Anorectum - normal Colon preparation: [place] Bowel Preparation Scale Right colon; 2 Transverse colon: 2 Left colon; 2 (0 = Unprepared colon segment with mucosa not seen due to solid stool that cannot be cleared. 1 = Portion of mucosa of the colon segment seen, but other areas of the colon segment not well seen due to staining, residual stool and/or opaque liquid. 2 = Minor amount of residual staining, small fragments of stool and/or opaque liquid, but mucosa of colon segment seen well. 3 = Entire mucosa of colon segment seen well with no residual staining, small fragments of stool or opaque liquid) Impression and Post Procedure Diagnosis: Endoscopy Findings: esophagitis schatzki ring mild gastritis Colonoscopy Findings: colon polyps internal hemorrhoids Plan: Await Pathology results Repeat Colonoscopy in 1-2 years due to polyps or earlier if clinically indicated High fiber diet leaflet avoid straining at stool, epsom salts and sitz bath, anusol supps or cream if active GERD then consider PPI Above findings were reviewed with the patient and relevant handouts were provided if indicated.
[2023-11-22 08:22] VITALS: BP 90/51; PULSE 89; RESP 16; TEMP 36.1; O2SAT 97
[2023-11-22 08:37] VITALS: BP 90/64; PULSE 71; RESP 16; O2SAT 100
[2023-11-22 08:52] VITALS: BP 108/62; PULSE 70; RESP 16; TEMP 36.1; O2SAT 100
== END 2023-11-22 09:17 | disposition home or self-care (01) ==
PROVIDERS: Nurse Practitioner; PCP Physician Assistant; Visit Provider Internal Medicine Gastroenterology
PROC: (CPT 43239; principal; 2023-11-22 07:30)
DX: K20.80 Other esophagitis without bleeding (principal); K22.2 Esophageal obstruction; K29.60 Other gastritis without bleeding; K63.5 Polyp of colon; K64.0 First degree hemorrhoids; Z86.010 Personal history of colon polyps; Z80.0 Family history of malignant neoplasm of digestive organs; Z79.899 Other long term (current) drug therapy
CPT/HCPCS: 43239; 45385; 45380; 81025; 88305; 88313; 88342; J1596; J2704

== ENCOUNTER → 2023-11-22 06:28 | Outpatient (BNV) | payer OTHER, SELFPAY | PROVIDERS: PCP Physician Assistant; Visit Provider Internal Medicine Gastroenterology | DX: Z12.11 Encounter for screening for malignant neoplasm of colon (principal); K22.2 Esophageal obstruction; Z80.0 Family history of malignant neoplasm of digestive organs; Z86.010 Personal history of colon polyps; K20.90 Esophagitis, unspecified without bleeding; K29.70 Gastritis, unspecified, without bleeding; K63.5 Polyp of colon; K64.0 First degree hemorrhoids | CPT/HCPCS: 43239; 45380; 45385 ==

== ENCOUNTER 2024-01-11 08:40 | Outpatient (REF) | payer OTHER, SELFPAY | END 2024-01-11 08:41 | disposition home or self-care (01) | LOC: HO.LNP 08:40 | PROVIDERS: PCP Physician Assistant; Visit Provider Obstetrics & Gynecology | DX: N90.89 Other specified noninflammatory disorders of vulva and perineum (principal) | CPT/HCPCS: 88304; 88305; 88312 ==

== ENCOUNTER 2024-01-11 08:40 | Outpatient (AMB) | payer OTHER, SELFPAY ==
[2024-01-11 08:47] VITALS: BP 110/70; BMI 23.3
--- NOTE | 2024-01-11 08:47 | A.OFFVIS_ITS ---
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 Complaining of right labia minora dark lesion that is irritating and tender, new in onset and has been growing in size over the last six-months Last Pap/HPV was negative in 10/18 Last Mammogram was BI-RADS 2 in 05/21 Last screening colonoscopy was done in 03/23, the recommendation was to repeat in 1 year due to multiple polyps PFSH Medical History In vitro fertilization IBS (irritable bowel syndrome) Low back pain Seasonal allergies Well woman exam Surgical History History of esophagogastroduodenoscopy Hx of sigmoidoscopy Hx of colonoscopy History of hysteroscopy History of repair of anterior cruciate ligament of right knee H/O repair of right rotator cuff Family History Maternal Aunt Colitis IBS (irritable bowel syndrome) Social History Household Members: Spouse Alcohol intake: current Alcohol intake frequency: holidays/special occasions only Patient Tobacco Use Status: Never used Tobacco Current occupational status: employed Female Reproductive History Menstrual Age of Menarche: 10 Duration of menses: 3-5 days Date of last menstrual period: 01/04/24 control method: progestin IUCD (Mirena) Total pregnancies: 1 Full term: 1 Date of last pap smear: 10/21/20 (negative pap smear, negative hpv) Date of Mammogram: 05/23/23 (bi rad2) Review of Systems Const All systems reviewed & are unremarkable except as noted in HPI and below Card Reports as per HPI Resp Reports as per HPI GI Reports as per HPI and Reports no additional complaints Reports as per HPI Physical Exam Vital Signs: BMI result Body Mass Index 24.6 Const General: cooperative, healthy appearing and comfortable Chest Chest palpation & inspection: normal inspection of the chest and normal palpation of entire chest wall Breast/axilla inspection: normal inspection of the breasts and normal inspection of the axillae Breast/axilla palpation: normal palpation of the breasts, normal palpation of the axillae and no axillary lymphadenopathy Resp Effort & Inspection: normal respiratory effort Auscultation: clear to auscultation bilaterally Percussion: percussion normal Cardio Palpation: normal PMI Rate: regular rate Rhythm: regular rhythm Heart sounds: no murmurs and no rubs Peripheral pulses: Peripheral pulses 2+ throughout GI Inspection: Yes normal to inspection Palpation (GI): Soft to palpation, nontender, no guarding, not rigid and No hepatosplenomegaly present Percussion: Yes normal to percussion Auscultation: normal bowel sounds Rectal Exam - Female: deferred General: Yes bladder normal to palpation External Female Exam: lesion (Right labia minora 0.3 cm dark lesion) Speculum Exam - Vagina: normal appearance of the vagina, normal palpation, normal vaginal discharge and not erythematous Speculum Exam - Cervix: normal appearance of the cervix and normal palpation Bimanual exam- vagina & uterus: normal bimanual exam, normal palpation, uterine size normal, bladder normal to palpation, consistency normal and normal palpation Bimanual Exam- Adnexa, other: normal adnexae, no masses and no tenderness Office Procedures Shave Excision Additional details: Before the procedure was started d/w patient the procedure, alternatives ( do nothing, medical rx), & all the risks associated with the procedure ( bleeding , infection, vulvar scarring, painful intercourse, injury to vessels, possible need for transfusion with all its risks) then patient signed the consent. Preop dx: Right labia minora lesion Op: Right labia minora lesion excision Post op: Same Anesthesia: Lidocaine 1% 3cc used Procedure: Using betadine the area was scrubbed and draped in the usual manner. 3 cc of lidocaine was used for anesthesia at the Right labia minora lesion area ; using scissors and pickup the Right labia minora lesion was excised, Vicryl was used to approximate the edges. Pressure was used for hemostasis. The patient tolerated the procedure well. Discharge Instructions: The patient was instructed to schedule an appointment in 2 weeks for follow-up and to call if temp>100.4, area of the biopsy redness or pain, nausea/vomiting. This note was generated with a voice recognition program. Some errors may have been overlooked during the review of this note. Sometimes these errors may affect the content or meaning of a given sentence. Assessment & Plan Assessment & Plan (1) Well woman exam: Code(s): Z01.419 - Encounter for gynecological examination (general) (routine) without abnormal findings Category: Medical Plan: Cotesting not indicated this year. Instructions given the patient to schedule next screening Mammogram in 05/22. Counseled the patient about the recommended dietary allowance of 1000 mg of Calcium & 600 IU of vitamin D. The patient will call GI office and schedule her next screening colonoscopy The patient was instructed to perform monthly self-breast exams and to schedule an annual exam in a year; All questions answered and the patient verbalized understanding. Instructed the patient to schedule annual exam in a year (2) Labial lesion: Comment: Right labia minora Code(s): N90.89 - Other specified noninflammatory disorders of vulva and perineum Category: Medical Plan: Discussed with the patient the finding on pelvic exam, right labia minora 0.3 cm dark lesion, recommended excision. Procedure done, see note Orders: Orders Biopsy/Excision - Vulva Today N90.89 - Other specified noninflammatory disorders of vulva and perineum Coding Level of Care Code Est Pt Prev Care 40-64y(24614) Diagnoses Well woman exam Z01.419 Labial lesion N90.89 Comment Right labia minora lesion excision
== END 2024-01-11 09:19 | disposition home or self-care (01) ==
LOC: HO.HWS 08:40
PROVIDERS: PCP Physician Assistant; Visit Provider Obstetrics & Gynecology
DX: Z01.419 Encounter for gynecological examination (general) (routine) without abnormal findings (principal); N90.89 Other specified noninflammatory disorders of vulva and perineum
CPT/HCPCS: 99396

== ENCOUNTER 2024-02-02 15:02 | Outpatient (AMB) | payer OTHER, SELFPAY ==
--- NOTE | 2024-02-02 15:03 | MHC.OFFVIS ---
Intake Visit Reasons: TV Biopsy Results Allergies methylisothiazolinone Allergy (Intermediate, Verified 01/11/24 08:51) Hives HPI Comments Details: The patient is scheduled tele health visit post right tibial lesion excision. Doing well with no complaints. The pathology showed the following: Vulva, right labia minora, biopsy: Fibroepithelial polyp with surface ulceration, hemorrhage and ectatic vessels PFSH Medical History In vitro fertilization IBS (irritable bowel syndrome) Low back pain Seasonal allergies Well woman exam Surgical History History of esophagogastroduodenoscopy Hx of sigmoidoscopy Hx of colonoscopy History of hysteroscopy History of repair of anterior cruciate ligament of right knee H/O repair of right rotator cuff Family History Maternal Aunt Colitis IBS (irritable bowel syndrome) Social History Household Members: Spouse Alcohol intake: current Alcohol intake frequency: holidays/special occasions only Patient Tobacco Use Status: Never used Tobacco Current occupational status: employed Female Reproductive History Menstrual Age of Menarche: 10 Review of Systems Const All systems reviewed & are unremarkable except as noted in HPI and below Reports as per HPI and Reports no additional complaints GI Reports no additional complaints Reports no additional complaints Telehealth Telehealth Telehealth Platform: Telephone Location of provider rendering services: practice address Location of patient: address on file Patient Identification confirmed using: Name, : Yes Telehealth method: video Patient verbally consented to treatment: Yes Patient verbally consented to billing insurance company: Yes Patient informed of any privacy concerns related to visit: Yes Assessment & Plan Assessment & Plan (1) Labial lesion: Comment: Right labia minora Code(s): N90.89 - Other specified noninflammatory disorders of vulva and perineum Category: Medical Plan: Discussed with the patient the results the pathology. Instructions given the patient to call if lesions recur, in case of a nonhealing ulcer or hard perineal areas. All questions answered, the patient verbalized understanding. I spent a total of 20 minutes reviewing the chart, talking to the patient via video and documenting in the medical record. Coding Level of Care Code Tele Est Pt Level 3 (38536) Diagnoses Labial lesion N90.89
== END 2024-02-02 15:12 | disposition home or self-care (01) ==
LOC: HO.HWS 15:02
PROVIDERS: PCP Physician Assistant; Visit Provider Obstetrics & Gynecology
DX: N90.89 Other specified noninflammatory disorders of vulva and perineum (principal)
CPT/HCPCS: 99213

== ENCOUNTER 2024-05-28 08:41 | Outpatient (REF) | payer OTHER, SELFPAY ==
--- NOTE | ~2024-05-28 | MM_ITS ---
EXAMINATION: MM SCREENING DIGITAL BREAST TOMOSYNTHESIS, BILATERAL CLINICAL INFORMATION: Screening. Asymptomatic. COMPARISON: Mammography: Comparison is made with available priors TECHNIQUE: Digital breast mammography with tomosynthesis is performed in both the craniocaudal and mediolateral oblique views along with computer-aided detection (CAD). FINDINGS: The breasts are extremely dense, which lowers the sensitivity of mammography (ACR BI-RADS breast composition Category d). Bilateral circumscribed oval masses which wax and wane consistent with benign fibrocystic changes and cysts. Prior ultrasounds demonstrated simple cysts. There are no significant masses, abnormal calcifications, or other abnormalities. MM/MM tomosynthesis screening BI IMPRESSION: No mammographic evidence of malignancy. Patient describes tenderness under the left breast which comes and goes and thinks it has to do with her cycle. Recommend clinical evaluation and if there is focal pain or if clinically concerned a diagnostic ultrasound can be ordered and performed. ASSESSMENT: BI-RADS BI-RADS 2 - Benign Findings RECOMMENDATION: Routine annual mammography screening. 1 year F/U This examination should not preclude the clinical evaluation of a suspicious palpable abnormality. This patient's information was entered into a reminder system with a target due date for their next mammogram. Electronically signed by: Vonnie Pop DO 05/28/2024 10:19 AM EDT
== END 2024-05-28 08:42 | disposition home or self-care (01) ==
LOC: HO.MAMMO 08:41
PROVIDERS: Visit Provider Physician Assistant
DX: Z12.31 Encounter for screening mammogram for malignant neoplasm of breast (principal)
CPT/HCPCS: 77063; 77067

== ENCOUNTER → 2024-05-28 08:45 | Outpatient (BNV) | payer OTHER, SELFPAY | PROVIDERS: Visit Provider Internal Medicine | DX: Z12.31 Encounter for screening mammogram for malignant neoplasm of breast (principal) | CPT/HCPCS: 77063; 77067 ==